=== PATIENT | male | born 1955 | race Caucasian/White ===

== ENCOUNTER → 2023-11-10 09:27 | Outpatient (REF) | payer MEDICARE, SELFPAY | LOC: HWRAD 09:27 | PROVIDERS: ATTENDING PHYSICIAN Specialist; FAMILY PHYSICIAN Family Medicine | DX: N40.1 Benign prostatic hyperplasia with lower urinary tract symptoms (principal) | CPT/HCPCS: 76770 ==

== ENCOUNTER 2024-07-23 11:00 | Emergency (ER) | payer MEDICARE, SELFPAY ==
[2024-07-23 11:06] VITALS: BP 136/64; BMI 29.9
[2024-07-23 11:37] LABS: % Basophils 0.8 % (0-2); % Eosinophils 3.5 % (0-6); % Lymphocytes 14.9 % (20.5-51.1); % Monocytes 7.3 % (1.7-9.3); % Neutrophils 73.5 % (42.2-75.2); Absolute Eosinophils 0.1 10^3/uL (0-0.7); Absolute Lymphocytes 0.6 10^3/uL (1.2-3.4); Absolute Monocytes 0.3 10^3/uL (0.1-0.6); Absolute Neutrophils 2.9 10^3/uL (1.4-6.5); Hematocrit 39.2 % (39.0-52.0); Hemoglobin 13.5 g/dL (13.0-18.0); Mean Corp Hgb Conc. 34.4 g/dL (33.0-37.0); Mean Corpuscular Volume 90.1 fL (80.0-94.0); Mean Platelet Volume 8.1 fL (7.4-10.4); Nucleated Red Blood Cells % 0 % (-); Platelet Count 169 10^3/uL (130-400); Red Blood Cell Count 4.35 10^6/uL (4.70-6.10); Red Cell Dist. Width 12.4 % (11.5-14.5)
--- NOTE | 2024-07-23 11:47 | ED.GENMED ---
History of Present Illness
General
Chief Complaint: Musculo-Skeletal Complaint
Source: patient
Time Seen by Provider: 07/23/24 11:02
History of Present Illness
History of Present Illness:
68-year-old male with a history of a glioblastoma and is status post resection at [place]
Seizure on Keppra
Who presents with after standing in his kitchen this morning at 1015 and steadily feeling an overwhelming feeling of an electrical radiating discomfort that started in his legs and moved up into his arms. It lasted about 15 minutes before fully
resolving and the patient feels normal now. Patient says it was not overall pain but just very strange feeling and he felt off balance. He was unaware of any weakness he denies any slurred speech or confusion, headache, blurry vision facial droop.
Patient says he completed chemo and radiation last week and his due to have a repeated MRI next week
He does not feel weak
no seizure acitvity noticed
here and says she appreciates his LUE waekness that is new today
Past History
Past History
ED Past Medical History: HTN
ED Past Surgical History: None
Social History
Tobacco: Non-smoker
Alcohol: None
Drug: None
Personal:
Living: with family
Review of Systems
Review of Systems
Allergies reviewed?: Yes
All Other Systems: Not applicable
Phy Exam
Physical Exam
Physical Exam:
GENERAL: Alert , in no apparent distress
HEAD: NCAT
EYE: pupils equal and reactive, no nystagmus, minimal photophobia
NECK: Supple,full rom, nontender
ENT: o/p clr, mmm.
CARDIAC: Regular rate and rhythm . no edema
LUNGS: Clear breath sounds bilaterally, no acute respiratory distress, no wheezes/rales/rhonchi
ABDOMEN: Soft, without focal tenderness, no r/g, no cvat
NEUROLOGICAL: Alert and orientedx 4, cn intact, no facial asymmetry, 5/5 RUE AND B/L LE STRENGTH, 4+/5 LUEstrength , sensation intact, romberg neg, ambulates without assistance,+ pronator drift; past pointing on L finger
SKIN: Warm and dry, skin intact.
MUSCULOSKELETAL: No edema, well perfused.
PSYCH: Normal and appropriate interaction.
Course
Orders/Labs/Results
Orders:
Orders
07/23/24 11:19
CT Head W/o Iv Contrast Urgent
Comment: weak L UE
Reason For Exam: glioblastoma; had electrical feeling today;
07/23/24 11:20
Electrocardiogram (*1) Urgent
Reason for Study: TIA/Stroke
EKG- Treatment ONCE
07/23/24 11:31
Complete Blood Count/With Diff Urgent
Comprehensive Metabolic Panel Urgent
Magnesium Urgent
Phosphorus Urgent
07/23/24 12:10
Lorazepam [Ativan] 1 mg IV NOW STA
07/23/24 12:28
Lorazepam [Ativan] 1 mg IV NOW STA
07/23/24 12:29
Levetiracetam Injectable [Keppra] 1,000 mg IV NOW STA
07/23/24 16:27
Ondansetron Injectable [Zofran] 4 mg .ROUTE .STK-MED ONE
07/23/24 16:30
Ondansetron Injectable [Zofran] 4 mg IV NOW STA
Abnormal Lab Results
07/23/24
11:31
WBC 4.0 L 10^3/uL
(4.8-10.8)
RBC 4.35 L 10^6/uL
(4.70-6.10)
Absolute Lymphs (auto) 0.6 L 10^3/uL
(1.2-3.4)
Lymphocytes % 14.9 L %
(20.5-51.1)
Glucose 138 H mg/dl
(70-99)
Total Protein 6.0 L g/dl
(6.3-8.2)
07/23/24 11:31
07/23/24 11:31
Vital Signs
Initial and Last Documented VS:
Initial Vital Signs
Temp Resp Pulse Ox
36.5 C 16 96
07/23/24 11:05 07/23/24 11:05 07/23/24 11:05
Last Documented Vital Signs
Temp Pulse Resp BP Pulse Ox
36.5 C 64 17 123/85 95
07/23/24 11:05 07/23/24 16:15 07/23/24 16:15 07/23/24 16:00 07/23/24 14:15
MDM/Problems Addressed
Differential Diagnosis Includes:
seiuzre, brain tumor recurrence, stroke,
MDM/Problems Addressed:
68 y/o M
brain tumor resected apr 2024 [place]
chemo/radiation comp.eted
here with feeling of electricity all over his body 15 min
resolved
but now i appreciate LUE weakness, pronator drift, and past pointing with the LUE
he doesn't appreciate his arm is weak
initially no seizure activity but pt reassessed to have visible obvious twitching L abdominal musclees, lip, foot left
c/w seizure
d/w ed attending and neuro
recommended ativan which he received x 2 and keppra load
ct neg
will d/w [facility]
who accepted pt to their service at [facility]
dr. plaza
pt has hd resolution in the seizure activity since the 2nd dose ativan and keppra kload
*Critical Care Note
Total Time (30-74mins, 75-104mins- exclusive of procedures): Not Applicable
ED Attending Note
-
Portions of this chart may have been created with voice recognition software.� Occasional wrong word or��sound alike� substitutions may have occurred due to the inherent limitations of voice recognition software.
Discharge Plan
Departure
Patient Disposition: Acute Care Hospital
Date of Disposition: 07/23/24
Time of Disposition: 14:11
Condition: Fair
Covid-19: Not Applicable
Discharge Problem:
Focal motor seizure
Instructions: Seizures
Prescriptions:
No Action
fenofibrate 160 MG tablet
160 mg PO QPM
aspirin 81 MG tablet,delayed release (DR/EC)
81 mg PO QPM
Eliquis 5 MG tablet
5 mg PO BID Qty: 180 3RF
valsartan 80 MG tablet
80 mg PO QPM
ascorbic acid (vitamin C) [Vitamin C] 500 MG tablet
1,000 mg PO QPM
famotidine 40 mg Tablet
40 mg PO BID
tamsulosin 0.4 mg Capsule
0.4 mg PO HS
levetiracetam 750 mg Tablet
750 mg PO BID
finasteride 5 mg Tablet
5 mg PO DAILY
ezetimibe 10 mg Tablet
10 mg PO DAILY
coenzyme Q10 [CoQ-10] 100 mg Capsule
300 mg PO DAILY
Referrals:
Kamlesh Jimenez DO [Family Provider] -
Hospital Transfer
Other hospital: [facility]
I certify that the patient requires transfer: Yes
Discussed case with accepting physician: lorraine
Reason for transfer: higher level of care and continuity of care PCP
Interventions
Interventions:
*Risk Screen - Suicide Last Done: 07/23/24 11:49
*General Assessment Last Done: 07/23/24 15:34
*Neglect/Abuse Screening Last Done: 07/23/24 11:49
ED- Fall Risk Assessment Last Done: 07/23/24 16:42
*ED COVID-19 Vaccine History Last Done: 07/23/24 16:42
*Nursing Disposition Last Done: 07/23/24 16:42
ED-Musculoskeletal Assessment Last Done: 07/23/24 12:16
Discharge Date and Time
Discharge Date/Time: 07/23/24 16:44
Print Language: JAPANESE
[2024-07-23 12:00] VITALS: BP 129/58
[2024-07-23 12:05] LABS: ALT (SGPT) 21 U/L (0-50); AST (SGOT) 24 U/L (17-59); Alkaline Phosphatase 39 U/L (38-126); Blood Urea Nitrogen 17 mg/dl (9-20); Calcium 9.5 mg/dl (8.4-10.2); Carbon Dioxide 24 mmol/L (22-30); Chloride 105 mmol/L (98-107); Estimated Creatinine Clearance 94 ml/min; Glucose 138 mg/dl (70-99); Magnesium 1.7 mg/dl (1.6-2.3); Phosphorus 3.5 mg/dl (2.5-4.5); Potassium 3.9 mmol/L (3.5-5.1); Sodium 140 mmol/L (135-145); Total Bilirubin 0.6 mg/dl (0.2-1.3); eGFR > 60.00
[2024-07-23] MEDS: ATIVAN 1 MG IV ×2 (12:12→12:31)
[2024-07-23] MEDS: KEPPRA 1000 MG IV (12:44)
[2024-07-23 14:00] VITALS: BP 146/90
[2024-07-23 14:11] VITALS: BP 116/74
[2024-07-23 15:00] VITALS: BP 145/78
[2024-07-23 16:00] VITALS: BP 123/85
[2024-07-23] MEDS: ZOFRAN 4 MG IV (16:30)
== END 2024-07-23 16:44 | disposition short-term general hospital (02) ==
LOC: EMR 11:00
PROVIDERS: Physician Assistant; EMERGENCY PHYSICIAN Emergency Medicine; FAMILY PHYSICIAN Family Medicine
DX: R56.9 Unspecified convulsions (principal); Z92.21 Personal history of antineoplastic chemotherapy; Z92.3 Personal history of irradiation
CPT/HCPCS: 99285; 96374; 96375 ×2; 70450; 80053; 83735; 84100; 85025; 93005

== ENCOUNTER 2024-08-29 09:07 | Emergency (ER) | payer MEDICARE, SELFPAY ==
[2024-08-29 09:15] VITALS: BP 103/60
[2024-08-29 09:17] VITALS: BP 103/60; BMI 28.7
--- NOTE | 2024-08-29 09:36 | ED.GENMED ---
History of Present Illness
General
Chief Complaint: Weakness
Source: patient
Exam Limitations: none
Time Seen by Provider: 08/29/24 09:12
Nursing documentation reviewed up to this point in time: agreed with
History of Present Illness
History of Present Illness:
Patient diagnosed with glioblastoma in March 2024, s/p radiation and chemotherapy, discharged from rehab facility 4 days ago after recent admission at [facility] due to seizure episode, presents to ED secondary to bilateral thigh weakness,
when he was walking out of his house, down approxi six steps, on his way to urologist office for an appointment this morning. Patient's spouse, who was with the patient, was able to assist him slowly to the ground. Patient denies any injuries.
Denies loss of sensation. Denies headache. Denies any other complaints. Patient states that since he has been home, physical therapy at home, has not started. Since yesterday, he felt as though his thighs were quite weak. However, as he lives
on 1 floor house, he was able to ambulate with use of walker, as he was doing prior to discharge from rehab. Per patient and spouse, at the time of initial diagnosis, patient has had extensive work, which did not reveal any metastasis. Patient was
told by his neurosurgeon that if his malignancy returns, most likely will be localized to his brain. He has follow-up MRI brain, arranged as an outpatient.
Past History
Past History
ED Past Medical History: HTN
ED Past Surgical History: None
Social History
Tobacco: Non-smoker
Alcohol: None
Drug: None
Personal:
Living: with family
Review of Systems
Review of Systems
Allergies reviewed?: Yes
All Other Systems: ROS reviewed and negative except as documented in HPI and ROS
Constitutional: Reports no symptoms; Denies fever
EENT: Reports no symptoms
Respiratory: Reports no symptoms
Cardiac: Reports no symptoms
ABD/GI: Reports no symptoms
: Reports no symptoms; Denies incontinence
Musculoskeletal: Reports other (thigh weakness)
Skin: Reports no symptoms
Neurological: Reports weakness; Denies dizzy, headache or numbness
Phy Exam
Physical Exam
Physical Exam:
Physical Exam
General: no apparent distress, not acutely ill. afebrile
Head: nc/at. eomi
Neck: supple. no meningeal signs.
Heart: s1/s2 regular rate and rhythm, no murmur. equal radial pulses.
Lungs: no acute respiratory distress. clear bilaterally
Abdomen: normal bowel sounds. not tender.
Neuro: alert and oriented x 3. no focal sensory/motor deficits. normal speech.
Skin: no rash
Psychiatric: well kept. interactive and cooperative
Extremities: no edema. no calf tenderness.
Course
Orders/Labs/Results
Orders:
Orders
08/29/24 09:24
Physical Therapy Consult [Pt Eval And Treat] Urgent
Activity Level: As Tolerated
08/29/24 09:38
CPK [Creatine Phosphokinase] Urgent
Complete Blood Count/With Diff Urgent
Comprehensive Metabolic Panel Urgent
Magnesium Urgent
TSH Urgent
08/29/24 12:37
Case Management Consult ONCE
Case Management Consult: Discharge Planning
Abnormal Lab Results
08/29/24
09:38
RBC 4.15 L 10^6/uL
(4.70-6.10)
Hct 37.7 L %
(39.0-52.0)
MCH 31.3 H pg
(27.0-31.0)
Absolute Lymphs (auto) 0.7 L 10^3/uL
(1.2-3.4)
Neutrophils % 81.5 H %
(42.2-75.2)
Lymphocytes % 11.8 L %
(20.5-51.1)
Carbon Dioxide 21 L mmol/L
(22-30)
Creatinine 0.6 L mg/dL
(0.7-1.3)
Glucose 147 H mg/dl
(70-99)
Creatine Kinase 22 L U/L
(55-170)
Total Protein 6.2 L g/dl
(6.3-8.2)
08/29/24 09:38
08/29/24 09:38
Vital Signs
Initial and Last Documented VS:
Initial Vital Signs
Pulse Resp Pulse Ox
77 16 93
08/29/24 09:14 08/29/24 09:14 08/29/24 09:14
Last Documented Vital Signs
Pulse Resp BP Pulse Ox
60 13 127/64 96
08/29/24 12:30 08/29/24 12:30 08/29/24 11:00 08/29/24 10:52
MDM/Problems Addressed
MDM/Problems Addressed:
Patient evaluated by physical therapy in ED - recommendations provided to patient and his spouse. Patient otherwise remains neurovascularly intact during observation, along with unremarkable blood work. Patient and spouse comfortable going home at
this time, and will continue already initiated at home PT/OT.
*Critical Care Note
Total Time (30-74mins, 75-104mins- exclusive of procedures): Not Applicable
ED Attending Note
-
Portions of this chart may have been created with voice recognition software.� Occasional wrong word or��sound alike� substitutions may have occurred due to the inherent limitations of voice recognition software.
Discharge Plan
Departure
Patient Disposition: Home (Routine Discharge)
Date of Disposition: 08/29/24
Time of Disposition: 12:43
Patient with high blood pressure during this ER visit?: Yes
Discharge Problem:
Weakness
Instructions: Generalized Weakness (DC)
Prescriptions:
No Action
fenofibrate 160 MG tablet
160 mg PO QPM
aspirin 81 MG tablet,delayed release (DR/EC)
81 mg PO QPM
Eliquis 5 MG tablet
5 mg PO BID Qty: 180 3RF
valsartan 80 MG tablet
80 mg PO QPM
ascorbic acid (vitamin C) [Vitamin C] 500 MG tablet
1,000 mg PO QPM
famotidine 40 mg Tablet
40 mg PO BID
tamsulosin 0.4 mg Capsule
0.4 mg PO HS
levetiracetam 750 mg Tablet
750 mg PO BID
finasteride 5 mg Tablet
5 mg PO DAILY
ezetimibe 10 mg Tablet
10 mg PO DAILY
coenzyme Q10 [CoQ-10] 100 mg Capsule
300 mg PO DAILY
Referrals:
Kamlesh Jimenez DO [Family Provider] -
Activity Restrictions/Additional Instructions:
As discussed, please follow-up with your neurosurgeon/oncology service for continual evaluation and treatment. You will require continual evaluation and treatment at home, i.e. physical therapy/Occupational Therapy. Please consider returning to ED
with significantly worsening symptoms.
Interventions
Interventions:
*Risk Screen - Suicide Last Done: 08/29/24 09:16
*General Assessment Last Done: 08/29/24 09:16
*Neglect/Abuse Screening Last Done: 08/29/24 09:16
ED- Fall Risk Assessment Last Done: 08/29/24 09:18
*ED COVID-19 Vaccine History Last Done: 08/29/24 09:18
*Nursing Disposition Last Done: 08/29/24 12:56
ED- Neurological Assessment Last Done: 08/29/24 09:18
ED- Pulmonary Assessment Last Done: 08/29/24 10:15
Discharge Date and Time
Discharge Date/Time: 08/29/24 12:56
Print Language: INDONESIAN
[2024-08-29 09:48] LABS: % Basophils 0.3 % (0-2); % Eosinophils 0.8 % (0-6); % Immature Granulocytes 0.3 % (0-0.5); % Lymphocytes 11.8 % (20.5-51.1); % Monocytes 5.3 % (1.7-9.3); % Neutrophils 81.5 % (42.2-75.2); Absolute Eosinophils 0.1 10^3/uL (0-0.7); Absolute Lymphocytes 0.7 10^3/uL (1.2-3.4); Absolute Monocytes 0.3 10^3/uL (0.1-0.6); Absolute Neutrophils 5.1 10^3/uL (1.4-6.5); Hematocrit 37.7 % (39.0-52.0); Mean Corp Hgb Conc. 34.5 g/dL (33.0-37.0); Mean Corpuscular Hgb 31.3 pg (27.0-31.0); Mean Corpuscular Volume 90.8 fL (80.0-94.0); Mean Platelet Volume 7.9 fL (7.4-10.4); Nucleated Red Blood Cells % 0 % (-); Platelet Count 245 10^3/uL (130-400); Red Blood Cell Count 4.15 10^6/uL (4.70-6.10); Red Cell Dist. Width 12.5 % (11.5-14.5); White Blood Cell Count 6.3 10^3/uL (4.8-10.8)
[2024-08-29 10:00] VITALS: BP 118/65
[2024-08-29 10:11] LABS: ALT (SGPT) 16 U/L (0-50); AST (SGOT) 21 U/L (17-59); Albumin 4.2 g/dl (3.5-5.0); Alkaline Phosphatase 38 U/L (38-126); Blood Urea Nitrogen 17 mg/dl (9-20); Calcium 9.6 mg/dl (8.4-10.2); Carbon Dioxide 21 mmol/L (22-30); Chloride 102 mmol/L (98-107); Creatine Phosphokinase 22 U/L (55-170); Estimated Creatinine Clearance > 125 ml/min; Glucose 147 mg/dl (70-99); Magnesium 1.6 mg/dl (1.6-2.3); Potassium 4.1 mmol/L (3.5-5.1); Sodium 137 mmol/L (135-145); Total Bilirubin 0.5 mg/dl (0.2-1.3); Total Protein 6.2 g/dl (6.3-8.2); eGFR > 60.00
[2024-08-29 10:40] LABS: TSH 0.76 uIU/ml (0.47-4.68)
[2024-08-29 10:52] VITALS: BP 118/64
[2024-08-29 11:00] VITALS: BP 127/64
[2024-08-29 12:00] VITALS: BP 118/64; BP 127/64; PULSE 59; O2SAT 96
--- NOTE | 2024-08-29 12:43 | CM ---
[facility] Patient has a scheduled visit RN visit on 08/30 and a PT visit on 08/31. CM updated patient and ER doctor.
== END 2024-08-29 12:56 | disposition home or self-care (01) ==
LOC: EMR 09:07
PROVIDERS: EMERGENCY PHYSICIAN Emergency Medicine; FAMILY PHYSICIAN Family Medicine
DX: R53.1 Weakness (principal); I10 Essential (primary) hypertension; Z92.21 Personal history of antineoplastic chemotherapy; Z92.3 Personal history of irradiation
CPT/HCPCS: 99283; 80053; 82550; 83735; 84443; 85025

== ENCOUNTER 2024-09-26 20:15 | Inpatient (IN) | payer MEDICARE, SELFPAY ==
[2024-09-26] VITALS (11 sets, daily range): BP systolic 134–173; BP diastolic 65–158; BMI 28.8
[2024-09-26 14:28] LABS: % Basophils 0.6 % (0-2); % Eosinophils 2.4 % (0-6); % Immature Granulocytes 0.6 % (0-0.5); % Lymphocytes 12.9 % (20.5-51.1); % Monocytes 14.4 % (1.7-9.3); % Neutrophils 69.1 % (42.2-75.2); Absolute Eosinophils 0.1 10^3/uL (0-0.7); Absolute Lymphocytes 0.6 10^3/uL (1.2-3.4); Absolute Monocytes 0.7 10^3/uL (0.1-0.6); Absolute Neutrophils 3.2 10^3/uL (1.4-6.5); Hematocrit 36.3 % (39.0-52.0); Hemoglobin 12.5 g/dL (13.0-18.0); Mean Corp Hgb Conc. 34.4 g/dL (33.0-37.0); Mean Corpuscular Hgb 30.7 pg (27.0-31.0); Mean Corpuscular Volume 89.2 fL (80.0-94.0); Mean Platelet Volume 8.3 fL (7.4-10.4); Nucleated Red Blood Cells % 0 % (-); Platelet Count 184 10^3/uL (130-400); Red Blood Cell Count 4.07 10^6/uL (4.70-6.10); Red Cell Dist. Width 12.8 % (11.5-14.5); White Blood Cell Count 4.7 10^3/uL (4.8-10.8)
[2024-09-26 14:40] LABS: ALT (SGPT) 16 U/L (0-50); AST (SGOT) 22 U/L (17-59); Albumin 4.3 g/dl (3.5-5.0); Alkaline Phosphatase 60 U/L (38-126); Blood Urea Nitrogen 19 mg/dl (9-20); Calcium 9.1 mg/dl (8.4-10.2); Carbon Dioxide 27 mmol/L (22-30); Chloride 104 mmol/L (98-107); Glucose 104 mg/dl (70-99); Sodium 140 mmol/L (135-145); Total Bilirubin 0.7 mg/dl (0.2-1.3); Total Protein 6.6 g/dl (6.3-8.2); eGFR > 60.00
[2024-09-26 15:42] LABS: Urine Albumin 3+ (Neg - Trace); Urine Bilirubin Negative (Negative); Urine Character Clear (Clear); Urine Color Yellow; Urine Glucose Negative (Negative); Urine Ketone Negative (Negative); Urine Leukocyte 3+ (Negative); Urine Nitrite Positive (Negative); Urine Occult Blood 4+ (Negative); Urine Urobilinogen 1+ (Neg - 1+)
[2024-09-26 15:54] LABS: Urine Mucus Few; Urine Squamous Cell 0-2 /LPF (Few)
[2024-09-26 15:55] LABS: Urine Bacteria Many (Negative); Urine Red Blood Cell 50-60 /HPF (0-2); Urine White Cell 90-100 /HPF (0-5)
--- NOTE | 2024-09-26 16:37 | ED.GENMED ---
History of Present Illness
General
Chief Complaint: Change in Mental Status
Time Seen by Provider: 09/26/24 13:40
History of Present Illness
History of Present Illness:
68-year-old male with history of glioblastoma status postresection in March 2024 at [place] presents to the emergency department with family for evaluation of worsening cognitive function and increasing agitation at home. He states that for the
past several weeks he has had progressive increase in 'focal seizures' and was recently started on Briviact by his neurologist at [place], first dose was this past . They state that despite starting this medication his mental status seems
to have declined rapidly. Of note he also underwent a TURP procedure 6 days ago for his urologist at [place], catheter had been in place for some time but was removed after the TURP procedure last week. He has been on nitrofurantoin since then.
Family states he is quite somnolent however at nighttime he became increasingly agitated constantly trying to get out of bed, fell yesterday and struck his head on the ground. He has not been on blood thinners since the TURP however did restart
this morning
Past History
Past History
ED Past Medical History: HTN
ED Past Surgical History: None
Social History
Tobacco: Non-smoker
Alcohol: None
Drug: None
Personal:
Living: with family
Review of Systems
Review of Systems
Allergies reviewed?: Yes
All Other Systems: ROS reviewed and negative except as documented in HPI and ROS
Phy Exam
Physical Exam
Physical Exam:
GEN: Well appearing but somnolent, arouses to voice, NAD, WDWN
HEENT: Oral mucosa moist, no scleral icterus, no nasal congestion
Cardiac: Regular rate and rhythm, no murmurs
Lung: No respiratory distress, no tachypnea
MSK: No gross deformity or injuries
Skin: Good color, no pallor or jaundice, no rashes
Neuro: Somnolent, arouses to voice, oriented to place, some confusion to time and events; CN II-XII grossly intact. BUE strength 5/5 in all orr, sensation intact and symmetric. BLE strength 5/5 in all orr, sensation intact and symmetric
Psych: Calm, cooperative
Course
Orders/Labs/Results
Orders:
Orders
09/26/24 13:59
CT Head W/o Iv Contrast Urgent
Comment:
Reason For Exam: fall head injury/AMS
09/26/24 14:09
Complete Blood Count/With Diff Urgent
Comprehensive Metabolic Panel Urgent
Urinalysis Reflex To Culture Urgent
Date Specimen was Collected: 09/26/24
Time Specimen was Collected: 10:53
Urine Microscopic Reflex Cult Urgent
Urine Culture Urgent
AMARJIT Source: U
Specimen Description:
Date Specimen was Collected: 09/26/24
Time Specimen was Collected: 10:53
09/26/24 16:16
Cefepime HCl [Maxipime] 2,000 mg IV NOW STA
Lactated Ringers [Lr] 1,000 ml IV BOLUS
Abnormal Lab Results
09/26/24
14:09
WBC 4.7 L 10^3/uL
(4.8-10.8)
RBC 4.07 L 10^6/uL
(4.70-6.10)
Hgb 12.5 L g/dL
(13.0-18.0)
Hct 36.3 L %
(39.0-52.0)
Absolute Lymphs (auto) 0.6 L 10^3/uL
(1.2-3.4)
Absolute Monos (auto) 0.7 H 10^3/uL
(0.1-0.6)
Immature Gran % 0.6 H %
(0-0.5)
Lymphocytes % 12.9 L %
(20.5-51.1)
Monocytes % 14.4 H %
(1.7-9.3)
Creatinine 0.6 L mg/dL
(0.7-1.3)
Glucose 104 H mg/dl
(70-99)
Ur Occult Blood Reflex 4+ A
(Negative)
Urine Nitrite (Reflex) Positive A
(Negative)
Leukocyte Esterase Rfl 3+ A
(Negative)
Urine RBC 50-60 A /HPF
(0-2)
Urine WBC (Reflex) 90-100 A /HPF
(0-5)
Urine Bacteria (Reflex) Many A
(Negative)
Urine Albumin (Reflex) 3+ A
(Neg - Trace)
09/26/24 14:09
09/26/24 14:09
Vital Signs
Initial and Last Documented VS:
Initial Vital Signs
Temp Pulse Resp BP Pulse Ox
98.4 F 67 18 144/78 97
09/26/24 10:49 09/26/24 10:49 09/26/24 10:49 09/26/24 10:49 09/26/24 10:49
Last Documented Vital Signs
Temp Pulse Resp BP Pulse Ox
98.4 F 70 16 164/77 98
09/26/24 10:49 09/26/24 17:45 09/26/24 17:30 09/26/24 17:00 09/26/24 17:00
MDM/Problems Addressed
MDM/Problems Addressed:
CT of the head is unremarkable. I suspect the mental status changes due to UTI, given recent TURP and prior Milian catheter will treat with broad-spectrum antibiotics. His labs are otherwise reassuring. Certainly cannot discount the possibility of
newly added Briviact contributing to his worsening cognitive decline. At this time I do not see any rationale for transfer to tertiary care facility as outpatient MRI from several weeks ago showed no evidence of recurrent [employer] malignancy and CT of
the head shows no concerns today. Patient was noted to have mild urinary retention however no indication for milian, will place on bladder scan protocol.
*Critical Care Note
Total Time (30-74mins, 75-104mins- exclusive of procedures): Not Applicable
ED Attending Note
-
Portions of this chart may have been created with voice recognition software.� Occasional wrong word or��sound alike� substitutions may have occurred due to the inherent limitations of voice recognition software.
Discharge Plan
Departure
Patient Disposition: Admit
Date of Disposition: 09/26/24
Time of Disposition: 18:59
Admit to: Med/Surg
Presentation/result/management discussed w/ accepting MD/DO: Hospitalist
Discharge Problem:
Urinary tract infection, Acute metabolic encephalopathy
Prescriptions:
No Action
fenofibrate 160 MG tablet
160 mg PO QPM
aspirin 81 MG tablet,delayed release (DR/EC)
81 mg PO QPM
Eliquis 5 MG tablet
5 mg PO BID Qty: 180 3RF
valsartan 80 MG tablet
80 mg PO QPM
ascorbic acid (vitamin C) [Vitamin C] 500 MG tablet
1,000 mg PO QPM
famotidine 40 mg Tablet
40 mg PO BID
tamsulosin 0.4 mg Capsule
0.4 mg PO HS
levetiracetam 750 mg Tablet
750 mg PO BID
finasteride 5 mg Tablet
5 mg PO DAILY
ezetimibe 10 mg Tablet
10 mg PO DAILY
coenzyme Q10 [CoQ-10] 100 mg Capsule
300 mg PO DAILY
Referrals:
Kamlesh Jimenez DO [Family Provider] -
Interventions
Interventions:
*Risk Screen - Suicide Last Done: 09/26/24 10:49
*General Assessment Last Done: 09/26/24 10:49
*Neglect/Abuse Screening Last Done: 09/26/24 10:49
ED- Neurological Assessment Last Done: 09/26/24 15:29
Discharge Date and Time
Print Language: GEORGIAN
[2024-09-26] MEDS: LR 1000 IV (16:42)
[2024-09-26] MEDS: MAXIPIME 2000 MG IV (16:42)
--- NOTE | 2024-09-26 19:39 | HPS.HSE ---
Family Physician
-
Family Physician: Kamlesh Jimenez
Chief Complaint
-
Decreasing mental status
History of Present Illness
This is a 68-year-old male with past medical history of hypertension, hyperlipidemia, DVT/PE, proximal atrial fibrillation, history of glioblastoma status post tumor resection in March, focal seizures, presenting to the emergency department for
evaluation of worsening cognitive function and agitation at home.
Patient reports that for the past several weeks he has has progressive increase in his seizures. Did described as focal seizures. He was started on Briviact by neurologist. Defaults dose was this past . Despite this the patient continued
to have declining mental status. Patient underwent a TURP procedure approximately 6 days ago by urologist at [facility]. He had a catheter which was removed after the procedure. Patient has been on prophylactic nitrofurantoin.
Family reports somnolence in the daytime with nighttime agitation. Recent fall with striking of his head. He has been off maintenance since the TURP which was restarted this am.
In the emergency department he was afebrile, blood pressure was 160/70 with a pulse of 70 satting 98% on room air. A CT of the head shows no acute interval changes. CBC was completely unremarkable. Electrolytes BUN/creatinine were all in the
normal range. LFTs were normal. He had a markedly positive urinalysis.
Medical History
Past Medical History
Past Medical History: Reports Arrhythmia (Proximal atrial fibrillation), Cancer (Glioblastoma status post resection), HTN, Hypercholesterolemia and Other (Venous thromboembolism with DVT and PE)
Past Surgical History: Reports Urological (Status post TURP 1 week ago, prior vasectomy)
Social History
Tobacco: Former Smoker
Alcohol: Former
Drug: None
Personal:
Living: With Family
Employment: Retired
Family History
Family History: Not pertinent
Allergies / Home Medications
Allergies reflects when Allergies were last updated in [facility].
Home Medications with original date entered in [facility]
Allergy/Medication List:
Allergies
Allergy/AdvReac Type Severity Reaction Status Date / Time
iodine Allergy Anaphylaxis Verified 09/26/24 10:49
Sulfa (Sulfonamide Allergy Unknown Verified 09/26/24 10:49
Antibiotics)
Influenza Virus Vaccines AdvReac 'DEALTHY Verified 09/26/24 10:49
SICK'
Home Medications
aspirin 81 mg tablet,delayed release 81 mg PO QPM Blood clot prevention/tx 09/04/20
fenofibrate 160 mg tablet 160 mg PO QPM High cholesterol 09/04/20
apixaban 5 mg tablet (Eliquis) 5 mg PO BID #180 tabs 09/07/20
ascorbic acid (vitamin C) 500 mg tablet (Vitamin C) 1,000 mg PO QPM Supplement 04/23/21
valsartan 80 mg tablet 80 mg PO QPM Blood pressure 04/23/21
coenzyme Q10 100 mg capsule (CoQ-10) 300 mg PO DAILY 07/23/24
ezetimibe 10 mg tablet 10 mg PO DAILY 07/23/24
famotidine 40 mg tablet 40 mg PO BID 07/23/24
finasteride 5 mg tablet 5 mg PO DAILY 07/23/24
levetiracetam 750 mg tablet 750 mg PO BID 07/23/24
tamsulosin 0.4 mg capsule 0.4 mg PO HS 07/23/24
Review of Systems
-
Constitutional: Reports No Symptoms
EENT: Reports No Symptoms
Respiratory: Reports No Symptoms
Cardiac: Reports No Symptoms
Abdomen/GI: Reports No Symptoms
: Reports Incontinence
Musculoskeletal: Reports No Symptoms
Skin: Reports No Symptoms
Neurological: Reports No Symptoms
Endocrine: Reports No Symptoms
Hematologic/Lymphatic: Reports No Symptoms
Psych: Reports No Symptoms
Physical Exam
Vital Signs
Vital Signs
Temp Pulse Resp BP Pulse Ox
98.4 F 70 16 164/77 98
09/26/24 10:49 09/26/24 17:45 09/26/24 17:30 09/26/24 17:00 09/26/24 17:00
Physical Exam
General: Well Developed, No Apparent Distress, Comfortable and Other
HEENT: NormoCephalic, Anicteric, Moist mucous membranes, Atraumatic and PERRLA
Respiratory: Clear
Cardiac: S1/S2 and Regular Rhythm
Breast: Deferred by me
GI: Soft, Non Tender, Non Distended and Normal Bowel Sounds
Rectal: Deferred by Provider
Genito-urinary: No costovertebral tender
Musculoskeletal: No Clubbing, No Cyanosis and No Edema
Skin: Warm
Neuro: Alert, Oriented (oriented to person and time but not to place), Nonfocal/grossly intact, Cranial Nerves Intact and Other (some word finding difficulties with extensive questioning. Moderate confusion)
Hematologic/Lymphatic: No Lymphadenopathy
Psych: Calm
Laboratory Results
-
09/26/24 14:09
09/26/24 14:09
Laboratory Results
Total Bilirubin 0.7 mg/dl (0.2-1.3) 09/26/24 14:09
AST 22 U/L (17-59) 09/26/24 14:09
ALT 16 U/L (0-50) 09/26/24 14:09
Alkaline Phosphatase 60 U/L (38-126) 09/26/24 14:09
Data Reviewed
-
CT Scan: Report Reviewed by me
Lab Data: Labs Reviewed by me
Old Records: Reviewed
Impression/Plan
-
IMPRESSION:
68 y.o with complex past medical history including GBM s/p resection, focal seizures recently on briviact, s/p TURP 1 week ago here with confusion and memory difficulties and found to have mild intermittent retention and positive u/a despite
prophylactic nitrofurantoin. CT head shows no acute abnormality. Eliquis held around surgical procedure but restarted today. Patient on brviact but dose unknown.
PLAN:
1. Confusion - Some underlying dementia and chronic confusion worsening in setting of UTI likely. Complicated UTI given turp. No focal deficits on exam except mild expressive aphasia.
- admit to telemetry
- neurochecks q 6
- urine cultures
- IV ceftriaxone for now
- bladder scan protocol for urinary retention
- restart patients seizure ppx once dose identified
- continue tamslosin and finesteride
2.Anticoagulation - On ac for afib and prior dvt/pe
- cleared to restart, continue eliquis 5 bid
3. pAFIB
- currently sinus
- eliquis
- no rate control, monitor on telemetry
5. HTN
- continue valsartan
DVT PPX - on eliquis
Code status - full code
--- NOTE | 2024-09-26 22:50 | PTCARENOTE ---
Rec'd from ED; transferred from stretcher to bed. Pt w/varying degrees of orientation @ different times. States the date is March 2025. Knows he is in [facility]. Able to give some medical hx and state some of his meds. Has freq difficulty expressing
thoughts; repetitive as he tries to find words. Follows commands. Bed alarm applied to bed due to recent fall and declining cognitive state. Call de use discussed with pt, as well as need to stay in bed unless assisted by staff. Pt voices
understanding.
[2024-09-26] MEDS: ELIQUIS 5 MG PO (23:39)
[2024-09-26] MEDS: FLOMAX 0.4 MG PO (23:40)
[2024-09-26] MEDS: PEPCID 40 MG PO (23:40)
[2024-09-27 00:25] VITALS: BMI 28.8
[2024-09-27 03:36] VITALS: BP 152/75
[2024-09-27] MEDS: STERILE WATER FOR INJECTION 10 ML IV ×2 (05:00→15:36)
[2024-09-27] MEDS: MAXIPIME 2000 MG IV ×2 (05:00→15:35)
[2024-09-27 07:30] VITALS: BP 138/78
[2024-09-27 07:31] LABS: Hematocrit 34.8 % (39.0-52.0); Hemoglobin 12.4 g/dL (13.0-18.0); Mean Corp Hgb Conc. 35.6 g/dL (33.0-37.0); Mean Corpuscular Hgb 30.8 pg (27.0-31.0); Mean Corpuscular Volume 86.4 fL (80.0-94.0); Mean Platelet Volume 8.4 fL (7.4-10.4); Platelet Count 192 10^3/uL (130-400); Red Blood Cell Count 4.03 10^6/uL (4.70-6.10); Red Cell Dist. Width 12.2 % (11.5-14.5); White Blood Cell Count 3.9 10^3/uL (4.8-10.8)
[2024-09-27] MEDS: ZETIA 10 MG PO (07:46)
[2024-09-27] MEDS: ELIQUIS 5 MG PO ×2 (07:46→20:49)
[2024-09-27] MEDS: PROSCAR 5 MG PO (07:46)
[2024-09-27 08:13] LABS: Blood Urea Nitrogen 14 mg/dl (9-20); Calcium 8.8 mg/dl (8.4-10.2); Carbon Dioxide 21 mmol/L (22-30); Chloride 104 mmol/L (98-107); Creatine Phosphokinase < 20 U/L (55-170); Estimated Creatinine Clearance 117 ml/min; Glucose 89 mg/dl (70-99); Magnesium 1.8 mg/dl (1.6-2.3); Potassium 3.5 mmol/L (3.5-5.1); Sodium 139 mmol/L (135-145); eGFR > 60.00
[2024-09-27 08:30] LABS: TSH 0.45 uIU/ml (0.47-4.68)
--- NOTE | 2024-09-27 08:33 | W.PN.HOSP.TC ---
Addendum entered and electronically signed by Steve Dunham MD 09/27/24 08:56:
correction pt is on Cefepime, not Rocephin
Original Note:
Today's Communication/Plan
-
discussed with PARVEZ Escoto and , medication list needs to be corrected
consider Neuro consult depending on progression
Assessment / Plan
Assessment / Plan
68 y.o with complex past medical history including GBM s/p resection, focal seizures recently on briviact, s/p TURP 1 week ago here with confusion and memory difficulties and found to have mild intermittent retention and positive u/a despite
prophylactic nitrofurantoin. CT head shows no acute abnormality. Eliquis held around surgical procedure but restarted today. Patient on brviact but dose unknown.
1. Confusion - Some underlying dementia and chronic confusion worsening in setting of UTI likely. Complicated UTI given turp. No focal deficits on exam except mild expressive aphasia.
- admit to telemetry
- neurochecks q 6
- urine cultures, was on Nitrofurantoin
- IV ceftriaxone for now
- bladder scan protocol for urinary retention
- restart patients seizure ppx once dose identified
- as per , Flomax and Proscar were stopped post TURP
2.Anticoagulation - On ac for afib and prior dvt/pe
- cleared to restart, continue eliquis 5 bid
3. pAFIB
- currently sinus
- eliquis
- no rate control, monitor on telemetry
s/p ablation 04/2021
5. HTN
- continue valsartan
6. Sz disorder
was on Vimpat and Keppra. Keppra has been stopped and is now on Briviact 50 mg bid, and Vimpat 150 mg bid
DVT PPX - on eliquis
many issues
Code status - full code
Anticipated Discharge: > 48 hours
Subjective/Interval History
-
Date of Service: September 27, 2024
Awake, alert, answering basic questions
Objective Data
-
Labs:
Laboratory Results
09/27/24 09/27/24
06:23 06:24
WBC 3.9 L
Hgb 12.4 L
Hct 34.8 L
Plt Count 192
Sodium 139
Potassium 3.5
Chloride 104
Carbon Dioxide 21 L
BUN 14
Creatinine 0.5 L
Glucose 89
Calcium 8.8
Vital Signs:
Vital Signs
Temp Pulse Resp BP Pulse Ox
97.9 F 69 20 138/78 95
09/27/24 07:30 09/27/24 07:30 09/27/24 07:30 09/27/24 07:30 09/27/24 07:30
I&O
09/26/24 09/27/24 09/28/24
06:59 06:59 06:59
Output Total 400 / 400
Balance -400 / -400
Review of Systems
-
History Source: Patient, Family (reviewed with , Eryn) and Coordinated Provider
EENT: Reports No Symptoms Reported
Respiratory: Reports No Symptoms
Cardiac: Reports No Symptoms
Abdomen/GI: Reports No Symptoms
Physical Exam
-
General: Well Developed, Well Nourished and No Apparent Distress
HEENT: Normocephalic, Atraumatic and Moist Mucous Membranes
Respiratory: Clear to Auscultation; Negative Wheezes, Rales or Rhonchi
Cardiac: Regular Rhythm and S1/S2
GI: Nontender and Nondistended
Musculoskeletal: No Clubbing, No Cyanosis and No Edema
Neuro: Awake, Alert and Oriented (mild cognitive impairment)
[2024-09-27 08:49] LABS: Vitamin B12 308 pg/ml (239-931)
[2024-09-27] MEDS: VIMPAT 50 MG PO ×2 (10:10→20:49)
[2024-09-27] MEDS: VIMPAT 100 MG PO ×2 (10:10→20:49)
[2024-09-27] MEDS: BRIVIACT 50 MG PO ×2 (10:10→20:50)
[2024-09-27 11:25] VITALS: BP 128/54
[2024-09-27 15:20] VITALS: BP 142/80
[2024-09-27] MEDS: DIOVAN 80 MG PO (17:07)
[2024-09-27] MEDS: TRICOR 145 MG PO (17:07)
[2024-09-27] MEDS: CRESTOR 40 MG PO (17:07)
[2024-09-27] MEDS: ASPIR LOW (ENTERIC COATED) 81 MG PO (17:07)
[2024-09-27 19:46] VITALS: BP 128/63
[2024-09-27] MEDS: PEPCID 40 MG PO (20:49)
[2024-09-27 23:09] VITALS: BP 129/71
[2024-09-28] MEDS: STERILE WATER FOR INJECTION 10 ML IV ×2 (03:00→15:08)
[2024-09-28] MEDS: MAXIPIME 2000 MG IV ×2 (03:01→15:08)
[2024-09-28 03:23] VITALS: BP 121/62
[2024-09-28 07:35] VITALS: BP 133/70
[2024-09-28] MEDS: VIMPAT 50 MG PO ×2 (08:26→20:34)
[2024-09-28] MEDS: VIMPAT 100 MG PO ×2 (08:26→20:34)
[2024-09-28] MEDS: ELIQUIS 5 MG PO ×2 (08:26→20:34)
[2024-09-28] MEDS: BRIVIACT 50 MG PO ×2 (08:26→20:34)
[2024-09-28] MEDS: ZETIA 10 MG PO (08:26)
[2024-09-28 11:40] VITALS: BP 129/71
[2024-09-28] MEDS: TYLENOL 650 MG PO (15:43)
[2024-09-28 15:45] VITALS: BP 120/66
--- NOTE | 2024-09-28 16:51 | W.PN.HOSP.TC ---
Today's Communication/Plan
-
await Ur C&S
Assessment / Plan
Assessment / Plan
68 y.o with complex past medical history including GBM s/p resection, focal seizures recently on briviact, s/p TURP 1 week ago here with confusion and memory difficulties and found to have mild intermittent retention and positive u/a despite
prophylactic nitrofurantoin. CT head shows no acute abnormality. Eliquis held around surgical procedure but restarted today. Patient on brviact but dose unknown.
1. Confusion - Some underlying dementia and chronic confusion worsening in setting of UTI likely. Complicated UTI given turp (TURP done on 09/14). No focal deficits on exam except mild expressive aphasia.
- admit to telemetry
- neurochecks q 6
- urine cultures, was on Nitrofurantoin
- IV Cefepime for now
- bladder scan protocol for urinary retention
- restart patients seizure ppx once dose identified
- as per , Flomax and Proscar were stopped post TURP
Mentation much better today, but not at baseline
UTI with gm neg bacilli as probable cause of Toxic Metabolic Encephalopathy causing the confusion
await C&S
Call placed and discussed with Dr. Foley [phone]
2.Anticoagulation - On ac for afib and prior dvt/pe
- cleared to restart, continue eliquis 5 bid
3. pAFIB
- currently sinus
- eliquis
- no rate control, monitor on telemetry
s/p ablation 04/2021
5. HTN
- continue valsartan
6. Sz disorder
was on Vimpat and Keppra. Keppra has been stopped and is now on Briviact 50 mg bid, and Vimpat 150 mg bid. Dx with glioblastoma Apr 15, 2024 and started on Keppra. Underwent resection Apr 27, 2024. Dc on Apr 30, doing well initially, started
6 wks of Chemo and XRT at [facility]. 2 weeks later, had a Sz on Jul 23, brought to [facility] and transported to [facility]. Was there for 15 days complicated hospitalization, multiple different agents and finally Sz controlled and then dc to [facility] rehab. On Vimpat
at that time, was working until 2 wks [employer] when developed left sided tilt. Briviact was added 1 wk [employer].
DVT PPX - on eliquis
Code status - full code
reviewed situation extensively with pt'
Anticipated Discharge: 24 - 48 hours
Subjective/Interval History
-
Date of Service: September 28, 2024
Awake, alert, never had dysuria
Objective Data
-
Vital Signs:
Vital Signs
Temp Pulse Resp BP Pulse Ox
98.5 F 62 16 120/66 95
09/28/24 15:45 09/28/24 15:45 09/28/24 15:45 09/28/24 15:45 09/28/24 15:45
I&O
09/27/24 09/28/24 09/29/24
06:59 06:59 06:59
Intake Total 960 / 960 420 / 420
Output Total 400 / 400 850 / 850 300 / 300
Balance -400 / -400 110 / 110 120 / 120
Review of Systems
-
History Source: Patient, Family (reviewed with , Eryn) and Coordinated Provider
EENT: Reports No Symptoms Reported
Respiratory: Reports No Symptoms
Cardiac: Reports No Symptoms
Abdomen/GI: Reports No Symptoms
Genitourinary: Denies Dysuria or Frequency
Neuro: Denies Dizzy, Headache or Weakness
Physical Exam
-
General: Well Developed, Well Nourished and No Apparent Distress
HEENT: Normocephalic, Atraumatic and Moist Mucous Membranes
Respiratory: Clear to Auscultation; Negative Wheezes, Rales or Rhonchi
Cardiac: Regular Rhythm and S1/S2
GI: Nontender and Nondistended
Musculoskeletal: No Clubbing, No Cyanosis and No Edema
Neuro: Awake, Alert and Oriented (mild cognitive impairment)
[2024-09-28] MEDS: DIOVAN 80 MG PO (17:30)
[2024-09-28] MEDS: ASPIR LOW (ENTERIC COATED) 81 MG PO (17:30)
[2024-09-28] MEDS: TRICOR 145 MG PO (17:31)
[2024-09-28] MEDS: CRESTOR 40 MG PO (17:31)
[2024-09-28 19:43] VITALS: BP 136/67
[2024-09-28] MEDS: PEPCID 40 MG PO (21:34)
[2024-09-28 23:38] VITALS: BP 122/63
[2024-09-29 03:50] VITALS: BP 118/65
[2024-09-29] MEDS: STERILE WATER FOR INJECTION 10 ML IV ×2 (04:40→16:40)
[2024-09-29] MEDS: MAXIPIME 2000 MG IV ×2 (04:40→16:40)
[2024-09-29 07:35] VITALS: BP 104/89
[2024-09-29] MEDS: BRIVIACT 50 MG PO ×2 (08:56→21:06)
[2024-09-29] MEDS: VIMPAT 50 MG PO ×2 (08:56→21:06)
[2024-09-29] MEDS: ELIQUIS 5 MG PO ×2 (08:57→21:06)
[2024-09-29] MEDS: VIMPAT 100 MG PO ×2 (08:57→21:06)
[2024-09-29] MEDS: ZETIA 10 MG PO (08:57)
[2024-09-29 11:25] VITALS: BP 127/65
[2024-09-29 11:30] VITALS: BMI 28.8
--- NOTE | 2024-09-29 13:31 | W.PN.HOSP.TC ---
Addendum entered and electronically signed by Steve Dunham MD 09/29/24 15:45:
called back to floor due to requesting further discussion. She would like neurologist evaluation with concern symptoms could be related to AED side effects. Pt remains confused. Will consult neurology
Original Note:
Today's Communication/Plan
-
Inf Disease consult
Assessment / Plan
Assessment / Plan
68 y.o with complex past medical history including GBM s/p resection, focal seizures recently on briviact, s/p TURP 1 week ago here with confusion and memory difficulties and found to have mild intermittent retention and positive u/a despite
prophylactic nitrofurantoin. CT head shows no acute abnormality. Eliquis held around surgical procedure but restarted. Patient on brviact at 50 mg bid.
1. Confusion - Some underlying dementia (possibly radiation associated) and chronic confusion worsening in setting of UTI likely. Complicated UTI given turp (TURP done on 09/14). No focal deficits on exam except mild expressive aphasia, better 09/29.
- admit to telemetry
- neurochecks q 6
- urine cultures, was on Nitrofurantoin
- IV Cefepime for now
- bladder scan protocol for urinary retention
- restarted patients seizure Rx
- as per , Flomax and Proscar were stopped post TURP
Mentation much better today, but not at baseline
UTI with gm neg bacilli as probable cause of Toxic Metabolic Encephalopathy causing the confusion
E. Coli sens to Cefepime
Call placed and discussed with Dr. Foley (Urology) [phone]
Complex situation with seizure aspects and recent brain surgery with XRT because of Glioblastoma
(not currently on chemo, was to start on Oct 17 through [facility])
2.Anticoagulation - On ac for afib and prior dvt/pe
- cleared to restart, continue eliquis 5 bid
3. pAFIB
- currently sinus
- eliquis
- no rate control, monitor on telemetry
s/p ablation 04/2021
5. HTN
- continue valsartan
6. Sz disorder
was on Vimpat and Keppra. Keppra has been stopped and is now on Briviact 50 mg bid, and Vimpat 150 mg bid. Dx with glioblastoma Apr 15, 2024 and started on Keppra. Underwent resection Apr 27, 2024. Dc on Apr 30, doing well initially, started
6 wks of Chemo and XRT at [facility]. 2 weeks later, had a Sz on Jul 23, brought to [facility] and transported to [facility]. Was there for 15 days complicated hospitalization, multiple different agents and finally Sz controlled and then dc to [facility] rehab. On Vimpat
at that time, was working until 2 wks [employer] when developed left sided tilt. Briviact was added 1 wk [employer].
DVT PPX - on eliquis
Code status - full code
reviewed situation extensively with pt' and dgt
complex situation
Anticipated Discharge: 24 - 48 hours
Subjective/Interval History
-
Date of Service: September 29, 2024
more alert, conversant
Objective Data
-
Vital Signs:
Vital Signs
Temp Pulse Resp BP Pulse Ox
97.4 F 65 16 127/65 97
09/29/24 11:25 09/29/24 11:25 09/29/24 11:25 09/29/24 11:25 09/29/24 11:25
I&O
09/28/24 09/29/24 09/30/24
06:59 06:59 06:59
Intake Total 960 / 960 660 / 660
Output Total 850 / 850 300 / 300 450 / 450
Balance 110 / 110 360 / 360 -450 / -450
Review of Systems
-
History Source: Patient, Family (reviewed with , Eryn) and Coordinated Provider
EENT: Reports No Symptoms Reported
Respiratory: Reports No Symptoms
Cardiac: Reports No Symptoms
Abdomen/GI: Reports No Symptoms
Genitourinary: Denies Dysuria or Frequency
Neuro: Denies Dizzy, Headache or Weakness
Physical Exam
-
General: Well Developed, Well Nourished and No Apparent Distress
HEENT: Normocephalic, Atraumatic and Moist Mucous Membranes
Respiratory: Clear to Auscultation; Negative Wheezes, Rales or Rhonchi
Cardiac: Regular Rhythm and S1/S2
GI: Nontender and Nondistended
Musculoskeletal: No Clubbing, No Cyanosis and No Edema
Neuro: Awake, Alert and Oriented (mild cognitive impairment)
--- NOTE | 2024-09-29 15:44 | CON.NEURO ---
Neuro Assessment/Plan
Assessment
Subacute change in mental status in a patient with a prior diagnosis of glioblastoma and recent prostate procedure with anticoagulation held for multiple days prior to the procedure
Differential diagnosis includes focal onset seizures producing lack of recall, medication exposure producing potential irritability, stroke due to recent discontinuance of anticoagulation, and expansion of prior glioblastoma
Plan
Check MRI of brain with and without contrast, with hopeful comparison with prior neuroimaging performed at [facility]
Check EEG greater than 1 hour to determine if the patient is having seizures producing symptomatology
Based on EEG results, consider replacement of brivaracetam (currently dosed with lacosamide) with lamotrigine, or advancement of the dosing of those medications
Would continue the patient's current apixaban and aspirin dosing
Continue rosuvastatin
Goal of normotension
Goal of normoglycemia
Rehabilitation evaluations, particularly speech therapy
Will follow
Consultation
Order
Date of Consultation: 09/29/24
Requesting Provider: Hospitalists
Reason for Consult: Change in mental status
Subjective/Objective
Subjective Data
Date of Service: September 29, 2024
Left-Handed
Patient was diagnosed with glioblastoma in March 2024 and underwent radiation and chemotherapy. The patient then was admitted at [facility] due to an episode of seizure.
Subsequently, patient returned to this hospital's emergency department on September 26, 2024 due to increases in changes in mental status.
6 days prior to his return, he underwent a prostate procedure and initiated nitrofurantoin.
The patient had an alteration immediately prior to his return to this emergency department with change from the use of levetiracetam to the use of brivaracetam. The patient's mental status is described as continuing to have declined despite the
medication revision.
Patient was described as being somnolent, agitated and fell the day before presentation to this hospital, striking his head.
Since hospitalization, the was described as having a significant urinary tract infection and improved mentation. The patient's family however indicate that the patient has been repetitive, agitated, and unable to recall recent events correctly.
Objective Data
Vital Signs
Temp Pulse Resp BP Pulse Ox
36.3 C 65 16 127/65 97
09/29/24 11:25 09/29/24 11:25 09/29/24 11:25 09/29/24 11:25 09/29/24 11:25
Lab Results
09/27/24 06:24
09/27/24 06:23
Sodium 139 mmol/L (135-145) 09/27/24 06:23
Potassium 3.5 mmol/L (3.5-5.1) 09/27/24 06:23
BUN 14 mg/dl (9-20) 09/27/24 06:23
Glucose 89 mg/dl (70-99) 09/27/24 06:23
Calcium 8.8 mg/dl (8.4-10.2) 09/27/24 06:23
Vitamin B12 308 pg/ml (239-931) 09/27/24 06:24
Patient Allergies
iodine Allergy (Verified 09/26/24 10:49)
Anaphylaxis
Sulfa (Sulfonamide Antibiotics) Allergy (Verified 09/26/24 10:49)
Unknown
Influenza Virus Vaccines Adverse Reaction (Verified 09/26/24 10:49)
'DEALTHY SICK'
Physical Exam
-
General: No Apparent Distress and Appears Stated Age
Eyes: OU Absent Papilledema, Round OU, [place] Conjunctivae and No Ptosis
HEENT: Anicteric and Moist Mucous Membranes
Neck: Full Range of Motion
Respiratory: No Dyspnea
Cardiac: No JVD
GI: Non-distended
Skin: Unremarkable
Extremities: No Clubbing, No Cyanosis and No Edema
Psych: Negative Intact Judgement/Insight
Extended Neurological Exam
Mood & Affect: Negative Affect Unremarkable (Irritable)
Attention Span & Concentration: Awake, Alert, Interactive and Mild Difficulty with 2 Step Request
Memory: Able to Recall (Location, year), Reduced (For the current month), Unable to Recall Personal History and Vague
Tremor: Hand Tremor Absent and Head Tremor Absent
Involuntary Movement: None
Speech: Quality Unremarkable and Quantity Unremarkable
Cranial Nerve II: Left Eye: Pupillary Reactivity Unremarkable, Pupillary Size Unremarkable and Visual Sandoval Intact
Cranial Nerve II: Right Eye: Pupillary Reactivity Unremarkable, Pupillary Size Unremarkable and Visual Sandoval Intact
Cranial Nerves III, IV, : Extraocular Movement: Extraocular Movement Full in all Directions
Cranial Nerve VII: Facial Symmetry: Normal Facial Symmetry
Cranial Nerve VIII: Hearing: Unremarkable Hearing to Normal Conversational Volume
Cranial Nerves IX, X: Palate Movement: Palate Elevation Symmetric
Cranial Nerve XI: Shoulder Shrug: Unremarkable
Cranial Nerve XII: Tongue Protusion: Midline
Muscle Strength, Overall: Full Throughout
Muscle Bulk & Tone: Bulk Unremarkable and Tone Unremarkable
Pronator Drift: No Drift in Upper Extremities
Deep Tendon Reflexes: Trace Throughout
Touch Sensation: Unremarkable
Coordination: [id number] Testing Unremarkable
Babinski Sign: Absent Bilaterally
Data Reviewed
-
CT Head: Report Reviewed
MRI Head: Ordered
EEG: Ordered
Labs: Report Reviewed
Reviewed with: Physician, Patient and Family
Old Records: Summarized
Medications
-
Active Medications
Generic Name Dose Route Start Last Admin
Trade Name Freq PRN Reason Stop Dose Admin
Acetaminophen 650 mg 09/26/24 22:28 09/28/24 15:43
Acetaminophen 325 Mg Tablet PO 10/24/24 22:27 650 mg
Q4HPRN PRN Administration
mild pain/GALINDO/temp> 100.4F
Apixaban 5 mg 09/26/24 22:28 09/29/24 08:57
Apixaban (Eliquis) 5 Mg Tablet PO 10/24/24 22:27 5 mg
BID TAMARA Administration
Aspirin 81 mg 09/27/24 18:00 09/28/24 17:30
Aspirin 81 Mg (Enteric Coated) Tablet PO 10/25/24 17:59 81 mg
QPM TAMARA Administration
Bisacodyl 10 mg 09/26/24 22:28
Bisacodyl 10 Mg Rectal Suppository RECTAL 10/24/24 22:27
[id number] PRN
constipation
Brivaracetam 50 mg 09/27/24 09:00 09/29/24 08:56
Brivaracetam 50 Mg Tablet PO 10/25/24 08:59 50 mg
BID TAMARA Administration
Cefepime HCl 2,000 mg 09/27/24 04:00 09/29/24 04:40
Cefepime Hcl 2,000 Mg/12.5 Ml Vial IV 2,000 mg
Q12H TAMARA Administration
Ezetimibe 10 mg 09/27/24 08:00 09/29/24 08:57
Ezetimibe (Zetia) 10 Mg Tablet PO 10/25/24 07:59 10 mg
DAILY TAMARA Administration
Famotidine 40 mg 09/26/24 22:28 09/28/24 21:34
Famotidine 40 Mg Tablet PO 10/24/24 22:27 40 mg
HS TAMARA Administration
Fenofibrate 145 mg 09/27/24 18:00 09/28/24 17:31
Fenofibrate 145 Mg Tablet PO 10/25/24 17:59 145 mg
QPM TAMARA Administration
Lacosamide 100 mg 09/27/24 09:00 09/29/24 08:57
Lacosamide (Vimpat) 100 Mg Tablet PO 10/25/24 08:59 100 mg
BID TAMARA Administration
Lacosamide 50 mg 09/27/24 09:15 09/29/24 08:56
Lacosamide (Vimpat) 50 Mg Tablet PO 10/25/24 09:14 50 mg
BID TAMARA Administration
Lorazepam 0.5 mg 09/26/24 22:00
Lorazepam 0.5 Mg Tablet PO 10/24/24 21:59
HS PRN
agitation
Ondansetron HCl 4 mg 09/26/24 22:28
Ondansetron 4 Mg/2 Ml Vial IV 10/24/24 22:27
Q6HPRN PRN
NAUSEA/VOMITING
Polyethylene Glycol 17 grams 09/26/24 22:28
Polyethylene Glycol Powder 17 Grams Packet PO 10/24/24 22:27
DAILYPRN PRN
constipation
Rosuvastatin Calcium 40 mg 09/27/24 18:00 09/28/24 17:31
Rosuvastatin (Crestor) 40 Mg Tablet PO 10/25/24 17:59 40 mg
QPM TAMARA Administration
Senna/Docusate Sodium 1 tablet 09/26/24 22:28
Docusate W/Senna (Genoveva-Colace) Tablet PO 10/24/24 22:27
BIDPRN PRN
constipation
Sodium Chloride 0 flush 09/26/24 22:00
Sodium Chloride 0.9% (Flush) Syringe IV 10/24/24 21:59
PER PROTOCOL TAMARA
Sterile Water 10 ml 09/27/24 04:00 09/29/24 04:40
Sterile Water For Injection 10 Ml Vial IV 10/25/24 03:59 10 ml
Q12H TAMARA Administration
Valsartan 80 mg 09/27/24 18:00 09/28/24 17:30
Valsartan 80 Mg Tablet PO 10/25/24 17:59 80 mg
QPM TAMARA Administration
Home Medications
�Medication �Instructions �Recorded
aspirin 81 mg tablet,delayed 81 mg PO QPM Blood clot 09/04/20
release prevention/tx
fenofibrate 160 mg tablet 160 mg PO QPM High cholesterol 09/04/20
apixaban 5 mg tablet (Eliquis) 5 mg PO BID #180 tabs 09/07/20
ascorbic acid (vitamin C) 500 mg 1,000 mg PO QPM Supplement 04/23/21
tablet (Vitamin C)
valsartan 80 mg tablet 80 mg PO QPM Blood pressure 04/23/21
coenzyme Q10 100 mg capsule 300 mg PO DAILY Supplement 07/23/24
(CoQ-10)
ezetimibe 10 mg tablet 10 mg PO DAILY High Cholesterol 07/23/24
famotidine 40 mg tablet 40 mg PO BID Gastrointestinal Issue 07/23/24
finasteride 5 mg tablet 5 mg PO DAILY Urinary Issue 07/23/24
levetiracetam 750 mg tablet 750 mg PO BID Neurological 07/23/24
Condition
tamsulosin 0.4 mg capsule 0.4 mg PO HS Urinary Issue 07/23/24
Past History
Past History
ED Past Medical History: Arrthythmia (Atrial fibrillation), Cancer (Glioblastoma), HTN, Hypercholesterolemia and Other (DVT, PE)
ED Past Surgical History: Brain (Craniotomy April 2024), Cardiac (Cardiac ablation 2020) and Urological (Vasectomy)
Social History
Tobacco: Non-smoker
Alcohol: None
Drug: None
Personal:
Living: with family
Family History
Family History: Other (Reviewed and noncontributory)
--- NOTE | 2024-09-29 16:31 | PTCARENOTE ---
Pt AAO x3, forgetful at times. TINOCO well, OOB with assist x1/walker, jace well, no c/o weakness/dizziness. VSS. On room air- pulse ox 98%. Abd large, soft, jace PO. Voids in urinal without difficulty. Resting in bed at present, no c/o. Family
members at bedside.
[2024-09-29] MEDS: FLUSH (NSS) 1 FLUSH IV (16:40)
[2024-09-29 16:42] VITALS: BP 159/76
[2024-09-29] MEDS: TRICOR 145 MG PO (17:19)
[2024-09-29] MEDS: DIOVAN 80 MG PO (17:19)
[2024-09-29] MEDS: ASPIR LOW (ENTERIC COATED) 81 MG PO (17:19)
[2024-09-29] MEDS: CRESTOR 40 MG PO (17:19)
[2024-09-29] MEDS: TYLENOL 650 MG PO (17:20)
[2024-09-29] MEDS: PEPCID 40 MG PO (21:06)
[2024-09-29 23:22] VITALS: BP 117/58
[2024-09-30] MEDS: STERILE WATER FOR INJECTION 10 ML IV ×2 (04:26→17:12)
[2024-09-30] MEDS: MAXIPIME 2000 MG IV (04:26)
[2024-09-30 07:00] VITALS: BP 128/57
--- NOTE | 2024-09-30 08:10 | W.PN.NEURO.1 ---
Today's Communication / Plan
-
Check MRI of brain with and without contrast, with hopeful comparison with prior neuroimaging performed at [facility]
Continue brivaracetam and lacosamide; consideration for replacement of one of the antiseizure medications with lamotrigine for potential improvement in mood
Neuro Assessment/Plan
Assessment
Subacute change in mental status in a patient with a prior diagnosis of glioblastoma and recent prostate procedure with anticoagulation held for multiple days prior to the procedure
Differential diagnosis includes focal onset seizures producing lack of recall, medication exposure producing potential irritability, stroke due to recent discontinuance of anticoagulation, and expansion of prior glioblastoma
Based on the patient's greater than 1 hour EEG not demonstrating seizure activity, I believe that the patient's current symptomatology is secondary to presence of the glioblastoma producing cognitive issues and subsequent mood decline.
Plan
Check MRI of brain with and without contrast, with hopeful comparison with prior neuroimaging performed at [facility]
Continue brivaracetam and lacosamide; consideration for replacement of one of the antiseizure medications with lamotrigine for potential improvement in mood
Would continue the patient's current apixaban and aspirin dosing
Continue rosuvastatin
Goal of normotension
Goal of normoglycemia
Rehabilitation evaluations, particularly speech therapy
Will follow pending results
Subjective/Objective
Subjective Data
Date of Service: September 30, 2024
Objective Data
Vital Signs
Temp Pulse Resp BP Pulse Ox
36.7 C 61 18 128/57 94
09/30/24 07:00 09/30/24 07:00 09/30/24 07:00 09/30/24 07:00 09/30/24 07:00
Lab Results
09/27/24 06:24
09/27/24 06:23
Sodium 139 mmol/L (135-145) 09/27/24 06:23
Potassium 3.5 mmol/L (3.5-5.1) 09/27/24 06:23
BUN 14 mg/dl (9-20) 09/27/24 06:23
Glucose 89 mg/dl (70-99) 09/27/24 06:23
Calcium 8.8 mg/dl (8.4-10.2) 09/27/24 06:23
Vitamin B12 308 pg/ml (239-931) 09/27/24 06:24
Patient Allergies
iodine Allergy (Verified 09/26/24 10:49)
Anaphylaxis
Sulfa (Sulfonamide Antibiotics) Allergy (Verified 09/26/24 10:49)
Unknown
Influenza Virus Vaccines Adverse Reaction (Verified 09/26/24 10:49)
'DEALTHY SICK'
Past History
Past History
ED Past Medical History: Arrthythmia (Atrial fibrillation), Cancer (Glioblastoma), HTN, Hypercholesterolemia and Other (DVT, PE)
ED Past Surgical History: Brain (Craniotomy April 2024), Cardiac (Cardiac ablation 2020) and Urological (Vasectomy)
Social History
Tobacco: Non-smoker
Alcohol: None
Drug: None
Personal:
Living: with family
Family History
Family History: Other (Reviewed and noncontributory)
Medications
-
Medications:
Generic Name Dose Route Start Last Admin
Trade Name Freq PRN Reason Stop Dose Admin
Acetaminophen 650 mg 09/26/24 22:28 09/29/24 17:20
Acetaminophen 325 Mg Tablet PO 10/24/24 22:27 650 mg
Q4HPRN PRN Administration
mild pain/GALINDO/temp> 100.4F
Apixaban 5 mg 09/26/24 22:28 09/29/24 21:06
Apixaban (Eliquis) 5 Mg Tablet PO 10/24/24 22:27 5 mg
BID TAMARA Administration
Aspirin 81 mg 09/27/24 18:00 09/29/24 17:19
Aspirin 81 Mg (Enteric Coated) Tablet PO 10/25/24 17:59 81 mg
QPM TAMARA Administration
Bisacodyl 10 mg 09/26/24 22:28
Bisacodyl 10 Mg Rectal Suppository RECTAL 10/24/24 22:27
[id number] PRN
constipation
Brivaracetam 50 mg 09/27/24 09:00 09/29/24 21:06
Brivaracetam 50 Mg Tablet PO 10/25/24 08:59 50 mg
BID TAMARA Administration
Cefepime HCl 2,000 mg 09/27/24 04:00 09/30/24 04:26
Cefepime Hcl 2,000 Mg/12.5 Ml Vial IV 2,000 mg
Q12H TAMARA Administration
Ezetimibe 10 mg 09/27/24 08:00 09/29/24 08:57
Ezetimibe (Zetia) 10 Mg Tablet PO 10/25/24 07:59 10 mg
DAILY TAMARA Administration
Famotidine 40 mg 09/26/24 22:28 09/29/24 21:06
Famotidine 40 Mg Tablet PO 10/24/24 22:27 40 mg
HS TAMARA Administration
Fenofibrate 145 mg 09/27/24 18:00 09/29/24 17:19
Fenofibrate 145 Mg Tablet PO 10/25/24 17:59 145 mg
QPM TAMARA Administration
Lacosamide 100 mg 09/27/24 09:00 09/29/24 21:06
Lacosamide (Vimpat) 100 Mg Tablet PO 10/25/24 08:59 100 mg
BID TAMARA Administration
Lacosamide 50 mg 09/27/24 09:15 09/29/24 21:06
Lacosamide (Vimpat) 50 Mg Tablet PO 10/25/24 09:14 50 mg
BID TAMARA Administration
Lorazepam 0.5 mg 09/26/24 22:00
Lorazepam 0.5 Mg Tablet PO 10/24/24 21:59
HS PRN
agitation
Ondansetron HCl 4 mg 09/26/24 22:28
Ondansetron 4 Mg/2 Ml Vial IV 10/24/24 22:27
Q6HPRN PRN
NAUSEA/VOMITING
Polyethylene Glycol 17 grams 09/26/24 22:28
Polyethylene Glycol Powder 17 Grams Packet PO 10/24/24 22:27
DAILYPRN PRN
constipation
Rosuvastatin Calcium 40 mg 09/27/24 18:00 09/29/24 17:19
Rosuvastatin (Crestor) 40 Mg Tablet PO 10/25/24 17:59 40 mg
QPM TAMARA Administration
Senna/Docusate Sodium 1 tablet 09/26/24 22:28
Docusate W/Senna (Genoveva-Colace) Tablet PO 10/24/24 22:27
BIDPRN PRN
constipation
Sodium Chloride 0 flush 09/26/24 22:00 09/29/24 16:40
Sodium Chloride 0.9% (Flush) Syringe IV 10/24/24 21:59 1 flush
PER PROTOCOL TAMARA Administration
Sterile Water 10 ml 09/27/24 04:00 09/30/24 04:26
Sterile Water For Injection 10 Ml Vial IV 10/25/24 03:59 10 ml
Q12H TAMARA Administration
Valsartan 80 mg 09/27/24 18:00 09/29/24 17:19
Valsartan 80 Mg Tablet PO 10/25/24 17:59 80 mg
QPM TAMARA Administration
[2024-09-30] MEDS: ZETIA 10 MG PO (09:00)
[2024-09-30] MEDS: VIMPAT 100 MG PO ×2 (09:00→21:10)
[2024-09-30] MEDS: ELIQUIS 5 MG PO ×2 (09:00→21:10)
[2024-09-30] MEDS: VIMPAT 50 MG PO ×2 (09:00→21:10)
[2024-09-30] MEDS: BRIVIACT 50 MG PO ×2 (09:00→21:10)
--- NOTE | 2024-09-30 09:22 | PTOTSP ---
SPEECH THERAPY SWALLOW EVALUATION:
Patient exhibits grossly functional oropharyngeal swallow at this time. No history of dysphagia/pneumonia noted. Patient remains at risk for aspiration/related complications given chronic history of glioblastoma/seizures with acutely exacerbating
factor of impaired mental status 2/2 UTI, TME. Recommend continue Regular texture solids, thin liquids. Medications whole with liquid as best tolerated. General aspiration precautions.
Patient refused to participate in structured speech/language/cognitive communication evaluation. Reported he already 'did this with the doctors and doesn't want to do it again', even despite rationale for further assessment with ST. Patient
exhibited moderate word finding difficulties and expressive aphasia in conversation. Patient stated he feels at his baseline at this time. Given refusal to participate, ST to sign off at this time. Please contact ST if goals/plan of care change.
RECOMMEND:
1) Regular texture diet, thin liquids
2) Medications whole with liquid as best tolerated
3) General aspiration precautions
4) Patient refusing speech/language services; ST to sign off
[2024-09-30] MEDS: VITAMIN B-12 1000 MCG PO (11:32)
--- NOTE | 2024-09-30 13:55 | CON.ID ---
Consultation
-
Date/Time Consultation Requested: 09/29/24 13:52
Date/Time Consultation Performed: 09/30/24 13:57
Requesting Provider: Dr Dunham
Performing Provider: Dr Chiu
Reason for Consultation: Decreasing mental status
Chief Complaint / Past History
Chief Complaint
AMS
History of Present Illness
Mr Barreto is a 69 year old male with history of glioblastoma s/p resection in March, focal seizures who presented here 2/ for decreased mental status and agitation which has progressed over the last several weeks with somnolence in the daytime and
nighttime agitation. There has been an increase in his baseline rate of seizures, he is on Briviact (version of levatiractem). He recently fell and had a head strike.
Of note he underwent a TURP around 09/21 at [facility]; had a milian catheter that was removed after the procedure, he has been on nitrofurantoin.
In the ER he was afebrile, bp overall stable, wbc initially 4.7 now 3.9, hgb 12.4, plt 192, no L shift, na 139, cr 0.5, ck <20, lfts wnl, ua 90-100 wbc/hpf, 2/3 ct head w/o IV contrast: Stable encephalomalacia in the right parietal lobe probably
sequela of previous surgery, MRI brain planned, urine culture 25 K e coli senstivie to nitrofurantoin, resistant to bactrim/tetracycline, sensitive to ciprofloxacin. last qtc was 424. Patient is currently on cefepime.
Past History
Additional Past Medical History:
Arrhythmia (Proximal atrial fibrillation), Cancer (Glioblastoma status post resection), HTN, Hypercholesterolemia and Other (Venous thromboembolism with DVT and PE)
Additional Past Surgical History:
Urological (Status post TURP 1 week ago, prior vasectomy)
Allergy History:
iodine Allergy (Verified 09/26/24 10:49)
Anaphylaxis
Sulfa (Sulfonamide Antibiotics) Allergy (Verified 09/26/24 10:49)
Unknown
Influenza Virus Vaccines Adverse Reaction (Verified 09/26/24 10:49)
'DEALTHY SICK'
Medications Reviewed: Yes
Social History
Tobacco: Former Smoker
Alcohol: Former
Drug: None
Family History
Family History: Not Pertinent
Review of Systems
Review of Systems
unable to obtain due to the condition of the patient
Vital Signs
Temp Pulse Resp BP Pulse Ox
98.0 F 61 18 128/57 94
09/30/24 07:00 09/30/24 07:00 09/30/24 07:00 09/30/24 07:00 09/30/24 09:05
Physical Exam
Physical Exam
Constitutional: No Acute Distress
Cardiovascular: Regular Rate and S1/S2; Negative Murmur or Rub
Pulmonary: Clear and Symmetric; Negative Wheezes, Rales or Rhonchi
Gastrointestinal: Soft, Non Tender, Non Distended and Normal Bowel Sounds
Skin: Warm and Dry; Negative Rash or Jaundice
Lab / Diagnostic Study Results
09/27/24 06:24
09/27/24 06:23
Abs Immat Gran (auto) 0.0 10^3/uL (0-0.05) 09/26/24 14:09
Absolute Neuts (auto) 3.2 10^3/uL (1.4-6.5) 09/26/24 14:09
Absolute Lymphs (auto) 0.6 10^3/uL (1.2-3.4) L 09/26/24 14:09
Absolute Monos (auto) 0.7 10^3/uL (0.1-0.6) H 09/26/24 14:09
Absolute Basos (auto) 0.0 10^3/uL (0-0.2) 09/26/24 14:09
Immature Gran % 0.6 % (0-0.5) H 09/26/24 14:09
Neutrophils % 69.1 % (42.2-75.2) 09/26/24 14:09
Lymphocytes % 12.9 % (20.5-51.1) L 09/26/24 14:09
Monocytes % 14.4 % (1.7-9.3) H 09/26/24 14:09
Eosinophils % 2.4 % (0-6) 09/26/24 14:09
Basophils % 0.6 % (0-2) 09/26/24 14:09
Ur Squamous Epith Cells 0-2 /LPF (Few) 09/26/24 14:09
Microbiology Results
Micro:
09/26/24 14:09 Urine Culture - Final
Urine Escherichia coli
Assessment / Plan
Possible UTI
H/o Glioblastoma
Seizure Disorder
TME - improved
Dementia
Allergy to bactrim - unknown
- nitrofurantoin does not penetrate the prostatic tissues
- given recent prostate surgery and presentation on nitrofurantoin even with very low colony count, reasonable to continue treatment. Options are limited particularly when considering regimens with least potential for neurotoxicty, penetration into
the prostate and allergy profile. While neurology workup is ongoing will transition to ceftriaxone 1 gm IV q24 hours while in house, on dc could transition to fosfomycin 3 gm q 72 hours to complete a 14 day total course. Currently on day 5 of
therapy. Family familiar with goodrx and understand how to use it to reduce cost
- follow up with his urologist at [email or web address].
Care Review
Plan reviewed with: Physician (Dr Dunham)
[2024-09-30 15:00] VITALS: BP 139/57
--- NOTE | 2024-09-30 16:48 | W.PN.HOSP.TC ---
Today's Communication/Plan
-
change code status
EEG now, pt agreeable, reviewed how data will assist in management
MRI
Assessment / Plan
Assessment / Plan
68 y.o with complex past medical history including GBM s/p resection, focal seizures recently on briviact, s/p TURP 1 week ago here with confusion and memory difficulties and found to have mild intermittent retention and positive u/a despite
prophylactic nitrofurantoin. CT head shows no acute abnormality. Eliquis held around surgical procedure but restarted. Patient on brviact at 50 mg bid.
1. Confusion - Some underlying dementia (possibly radiation associated) and chronic confusion worsening in setting of UTI likely. Complicated UTI given turp (TURP done on 09/14). No focal deficits on exam except mild expressive aphasia, better 09/29.
- admit to telemetry
- neurochecks q 6
- urine cultures, was on Nitrofurantoin
- IV Cefepime to change to Ceftriaxone
- bladder scan protocol for urinary retention
- restarted patients seizure Rx
- as per , Flomax and Proscar were stopped post TURP
Mentation much better today, but not at baseline
UTI with gm neg bacilli as probable cause of Toxic Metabolic Encephalopathy causing the confusion
E. Coli sens to Cefepime and Ceftriaxone
Call placed and discussed with Dr. Foley (Urology) [phone]
Complex situation with seizure aspects and recent brain surgery with XRT because of Glioblastoma
(not currently on chemo, was to start on Oct 17 through [facility]). Input of Dr. Roblero noted and appreciated
2.Anticoagulation - On ac for afib and prior dvt/pe
- cleared to restart, continue eliquis 5 bid
3. pAFIB
- currently sinus
- eliquis
- no rate control, monitor on telemetry
s/p ablation 04/2021
5. HTN
- continue valsartan
6. Sz disorder
was on Vimpat and Keppra. Keppra has been stopped and is now on Briviact 50 mg bid, and Vimpat 150 mg bid. Dx with glioblastoma Apr 15, 2024 and started on Keppra. Underwent resection Apr 27, 2024. Dc on Apr 30, doing well initially, started
6 wks of Chemo and XRT at [facility]. 2 weeks later, had a Sz on Jul 23, brought to [facility] and transported to [facility]. Was there for 15 days complicated hospitalization, multiple different agents and finally Sz controlled and then dc to [facility] rehab. On Vimpat
at that time, was working until 2 wks [employer] when developed left sided tilt. Briviact was added 1 wk [employer].
DVT PPX - on eliquis
Code status - discussed with and dgt, she is very clear that pt would never had wanted to be on a ventilator or go through CPR, as such will change code status to DNR
reviewed situation extensively with pt' and dgt in and out of room
complex situation
Anticipated Discharge: > 48 hours
Subjective/Interval History
-
Date of Service: September 30, 2024
Appears calmer today, willing to go for EEG and MRI
Objective Data
-
Vital Signs:
Vital Signs
Temp Pulse Resp BP Pulse Ox
97.9 F 79 18 139/57 94
09/30/24 15:00 09/30/24 15:00 09/30/24 15:00 09/30/24 15:00 09/30/24 15:00
I&O
09/29/24 09/30/24 10/01/24
06:59 06:59 06:59
Intake Total 660 / 660 760 / 760 360 / 360
Output Total 300 / 300 1050 / 1050 400 / 400
Balance 360 / 360 -290 / -290 -40 / -40
Review of Systems
-
History Source: Patient, Family (reviewed with , Eryn) and Coordinated Provider
EENT: Reports No Symptoms Reported
Respiratory: Reports No Symptoms
Cardiac: Reports No Symptoms
Abdomen/GI: Reports No Symptoms
Genitourinary: Denies Dysuria or Frequency
Neuro: Denies Dizzy, Headache or Weakness
Physical Exam
-
General: Well Developed, Well Nourished and No Apparent Distress
HEENT: Normocephalic, Atraumatic and Moist Mucous Membranes
Respiratory: Clear to Auscultation; Negative Wheezes, Rales or Rhonchi
Cardiac: Regular Rhythm and S1/S2
GI: Nontender and Nondistended
Musculoskeletal: No Clubbing, No Cyanosis and No Edema
Neuro: Awake, Alert and Oriented (mild cognitive impairment)
[2024-09-30] MEDS: DIOVAN 80 MG PO (17:12)
[2024-09-30] MEDS: TRICOR 145 MG PO (17:12)
[2024-09-30] MEDS: ROCEPHIN 1000 MG IV (17:12)
[2024-09-30] MEDS: ASPIR LOW (ENTERIC COATED) 81 MG PO (17:12)
[2024-09-30] MEDS: CRESTOR 40 MG PO (17:12)
--- NOTE | 2024-09-30 17:13 | EEG.RPT ---
Electroencephalogram Report
Recording
Date of EE09/30/24
Type of EEG: Routine
Length of EEG recordin minutes
Done with Video Recording: Yes
Patient Status: Inpatient
Recording Conditions: Awake and Drowsy
Hyperventilation Performed: No
Photic Stimulation Performed: Yes
Report
GREATER THAN 1 HOUR REPORT
GREATER THAN 1 HOUR EEG INTERPRETATION:
Moderately abnormal EEG for age in wakefulness through drowsiness due to the above mentioned right temporally predominant generalizing discharge
CLINICAL CORRELATION:
This study was suggestive of right temporal generalizing cortical abnormality best demonstrated in drowsiness. Generalized slowing is suggestive of bihemispheric cortical dysfunction.
Clinical correlation is advised.
METHODS:
A 21 channel digitized electroencephalogram (EEG) was performed at the bedside in the intensive care unit. The 10/20 international system of electrode placement was used with ECG and lateral/vertical eye movements recorded. Video was recorded.
Persyst quantitative EEG analysis was utilized.
ELECTROENCEPHALOGRAPHER IMPRESSION(S):
Quality of study
Fair�good, limited by muscle artifact
Background
There was an fairly to poorly organized anterior to posterior gradient with medium amplitude theta-frequency background
With eye opening the background activity changed to a low voltage mixture of frequencies.
Sleep
Drowsiness present
Photic Stimulation
Failed to activate the record.
ECG
Normal sinus rhythm
Abnormal Findings
In drowsiness was frequent bursts lasting up to 6 seconds of right temporal maximal (T6 maximal) intermittent rhythmic delta activity (GPEDs) of variable amplitudes and not taking place during wakefulness, generalizing.
[2024-09-30] MEDS: PEPCID 40 MG PO (21:10)
[2024-09-30 23:31] VITALS: BP 165/74
[2024-10-01 07:55] VITALS: BP 146/80
[2024-10-01] MEDS: VITAMIN B-12 1000 MCG PO (07:55)
[2024-10-01] MEDS: BRIVIACT 50 MG PO ×2 (07:55→21:31)
[2024-10-01] MEDS: VIMPAT 100 MG PO ×2 (07:56→21:31)
[2024-10-01] MEDS: ELIQUIS 5 MG PO ×2 (07:56→21:31)
[2024-10-01] MEDS: ZETIA 10 MG PO (07:56)
[2024-10-01] MEDS: VIMPAT 50 MG PO ×2 (07:56→21:31)
--- NOTE | 2024-10-01 10:00 | PTOTSP ---
Speech Therapy
Presentation: Patient appeared to be frustrated but willing to participate in session. Patient was oriented to self and location. Patient was not oriented to date or year.
MD ordered cognitive assessment orders.
LABORATORY HELPER assessed patient's cognitive linguistic functioning with the [facility] Cognitive Assessment- Basic. Patient's scores are as follows:
executive function: 0/1 (vision was a barrier; noted glasses - patient stated vision has been an issue for ~ month)
immediate recall: demonstrated difficulty first trial but improved second trial
fluency: 0/2; unable to recall any fruits and stated he is not interested
orientation: 2/6; not orineted to day, month, or year; demonstrated perseverations
calculation: 0/3; perseverations and stated he is not interested in question
abstraction: 2/3; unable to state category of north and south
delayed recall: 0/5; unable to recall any of the words provided earlier in the assessment
visuoperceptual: 0/3; described 2 items out of 10 resulting in 0 pints.
namin/4; described 2 animals and was not interested in the other 2 trials
attention: 0/3; patient refused due to apparent frustration
In sum, patient is demonstrating overt cognitive deficits which may be correlated to his disinterest in the assessment and/or cognitive impairment. Patient demonstrated perseverations, difficulty following complex tasks, recall, fluency,
calculation, visuoperception, naming, and attention.
Given the above, patient would likely benefit from cognitive linguistic therapy provided by LABORATORY HELPER which can be completed in acute care and/ or outpatient; pending d/c plans.
Recommendations:
1) Cognitive linguistic therapy
Plan: LABORATORY HELPER will continue to follow for cognitive linguistic therapy; pending hospitalization.
--- NOTE | 2024-10-01 13:30 | W.PN.HOSP.TC ---
Today's Communication/Plan
-
continue IV Ceftriaxone
MRI and EEG results reviewed
Assessment / Plan
Assessment / Plan
68 y.o with complex past medical history including GBM s/p resection, focal seizures recently on briviact, s/p TURP 1 week ago here with confusion and memory difficulties and found to have mild intermittent retention and positive u/a despite
prophylactic nitrofurantoin. CT head shows no acute abnormality. Eliquis held around surgical procedure but restarted. Patient on brviact at 50 mg bid.
1. Confusion - Some underlying dementia (possibly radiation associated) and chronic confusion worsening in setting of UTI likely. Complicated UTI given turp (TURP done on 09/14). No focal deficits on exam except mild expressive aphasia, better 09/29,
but not back to baseline.
- admit to telemetry
- neurochecks q 6
- urine cultures, was on Nitrofurantoin
- IV Cefepime to change to Ceftriaxone
- bladder scan protocol for urinary retention
- restarted patients seizure Rx
- as per , Flomax and Proscar were stopped post TURP
Mentation much better compared to admission, but not at baseline. Await further input from neurology, continue IV abx while in hospital
09/30 EEG: A 21 channel digitized electroencephalogram (EEG) was performed at the bedside in the intensive care unit. The 10/20 international system of electrode placement was used with ECG and lateral/vertical eye movements recorded. Video was
recorded. Persyst quantitative EEG analysis was utilized.
ELECTROENCEPHALOGRAPHER IMPRESSION(S):
Quality of study
Fair�good, limited by muscle artifact
Background
There was an fairly to poorly organized anterior to posterior gradient with medium amplitude theta-frequency background
With eye opening the background activity changed to a low voltage mixture of frequencies.
Sleep
Drowsiness present
Photic Stimulation
Failed to activate the record.
ECG
Normal sinus rhythm
Abnormal Findings
In drowsiness was frequent bursts lasting up to 6 seconds of right temporal maximal (T6 maximal) intermittent rhythmic delta activity (GPEDs) of variable amplitudes and not taking place during wakefulness, generalizing.
MRI: Status post parieto-occipital craniotomy, centered in the right posterior paramedian parietal region. Focus of encephalomalacia with hemosiderin rim subjacent to the craniotomy. No MR evidence for residual or recurrent neoplasm.
Asymmetric increased FLAIR signal involving the white matter of the right parieto-occipital region, possibly due to radiation therapy.
Asymmetric increased FLAIR signal involving the right posterior thalamus as well as the right medial and lateral cortex of the insula in the region of right external capsule. Etiology for this finding is uncertain. This could be due to radiation
therapy changes that this was included in the radiation therapy field. Differential consideration of encephalitis, without enhancement. Patient with reported history of seizures, and brain parenchymal signal intensity changes can be seen in
association with seizures, and this would also be a differential consideration.
Diffuse atrophy.
UTI with gm neg bacilli as probable cause of Toxic Metabolic Encephalopathy causing the confusion
E. Coli sens to Cefepime and Ceftriaxone. Will continue Ceftriaxone for now, as per ID transition to fosfomycin 3 gms q72hrs at time of dc
Call placed and discussed with Dr. Foley (Urology) [phone] on 09/28, as requested by pt's
Complex situation with seizure aspects and recent brain surgery with XRT because of Glioblastoma
(not currently on chemo, was to start on Oct 17 through [facility]). Input of Dr. Roblero noted and appreciated
2.Anticoagulation - On ac for afib and prior dvt/pe
- cleared to restart, continue eliquis 5 bid
3. pAFIB
- currently sinus
- eliquis
- no rate control, monitor on telemetry
s/p ablation 04/2021
5. HTN
- continue valsartan
6. Sz disorder
was on Vimpat and Keppra. Keppra has been stopped and is now on Briviact 50 mg bid, and Vimpat 150 mg bid. Dx with glioblastoma Apr 15, 2024 and started on Keppra. Underwent resection Apr 27, 2024. Dc on Apr 30, doing well initially, started
6 wks of Chemo and XRT at [facility]. 2 weeks later, had a Sz on Jul 23, [facility] and transported to [facility]. Was there for 15 days complicated hospitalization, multiple different agents and finally Sz controlled and then dc to [facility] rehab. On Vimpat
at that time, was working until 2 wks [employer] when developed left sided tilt. Briviact was added 1 wk [employer].
DVT PPX - on eliquis
Code status - discussed with and dgt, she is very clear that pt would never had wanted to be on a ventilator or go through CPR, as such will change code status to DNR
reviewed situation extensively with pt' and dgt in and out of room
complex situation
Anticipated Discharge: 24 - 48 hours
Subjective/Interval History
-
Date of Service: October 01, 2024
Appears comfortable
Objective Data
-
Vital Signs:
Vital Signs
Temp Pulse Resp BP Pulse Ox
98.5 F 64 16 146/80 93
10/01/24 07:55 10/01/24 07:55 10/01/24 07:55 10/01/24 07:55 10/01/24 07:55
I&O
09/30/24 10/01/24 10/02/24
06:59 06:59 06:59
Intake Total 760 / 760 360 / 360
Output Total 1050 / 1050 400 / 400
Balance -290 / -290 -40 / -40
Review of Systems
-
History Source: Patient, Family (reviewed with , Eryn in and out of room) and Coordinated Provider
EENT: Reports No Symptoms Reported
Respiratory: Reports No Symptoms
Cardiac: Reports No Symptoms
Abdomen/GI: Reports No Symptoms
Genitourinary: Denies Dysuria or Frequency
Neuro: Denies Dizzy, Headache or Weakness
Physical Exam
-
General: Well Developed, Well Nourished and No Apparent Distress
HEENT: Normocephalic, Atraumatic and Moist Mucous Membranes
Respiratory: Clear to Auscultation; Negative Wheezes, Rales or Rhonchi
Cardiac: Regular Rhythm and S1/S2
GI: Nontender and Nondistended
Musculoskeletal: No Clubbing, No Cyanosis and No Edema
Neuro: Awake, Alert and Oriented (mild cognitive impairment)
--- NOTE | 2024-10-01 14:07 | W.PN.NEURO.1 ---
Today's Communication / Plan
-
Lumbar puncture to determine if the patient is experiencing right temporal as well as right insula meningitis/encephalitis or fungal infection
Neuro Assessment/Plan
Assessment
Subacute change in mental status in a patient with a prior diagnosis of glioblastoma and recent prostate procedure with anticoagulation held for multiple days prior to the procedure
Differential diagnosis includes focal onset seizures producing lack of recall, medication exposure producing potential irritability, stroke due to recent discontinuance of anticoagulation, and expansion of prior glioblastoma
Based on the patient's greater than 1 hour EEG there is the possibility of a subacute viral infection or structural abnormality producing symptoms
Plan
Lumbar puncture to determine if the patient is experiencing right temporal as well as right insula meningitis/encephalitis or fungal infection
Continue brivaracetam and lacosamide
Would continue the patient's current apixaban and aspirin dosing
Continue rosuvastatin
Goal of normotension
Goal of normoglycemia
Rehabilitation evaluations, particularly speech therapy
Will follow pending results
Subjective/Objective
Subjective Data
Date of Service: October 01, 2024
Patient reports no symptoms currently
Objective Data
Vital Signs
Temp Pulse Resp BP Pulse Ox
36.9 C 64 16 146/80 93
10/01/24 07:55 10/01/24 07:55 10/01/24 07:55 10/01/24 07:55 10/01/24 07:55
Lab Results
09/27/24 06:24
09/27/24 06:23
Sodium 139 mmol/L (135-145) 09/27/24 06:23
Potassium 3.5 mmol/L (3.5-5.1) 09/27/24 06:23
BUN 14 mg/dl (9-20) 09/27/24 06:23
Glucose 89 mg/dl (70-99) 09/27/24 06:23
Calcium 8.8 mg/dl (8.4-10.2) 09/27/24 06:23
Vitamin B12 308 pg/ml (847-161) 09/27/24 06:24
Patient Allergies
iodine Allergy (Verified 09/26/24 10:49)
Anaphylaxis
Sulfa (Sulfonamide Antibiotics) Allergy (Verified 09/26/24 10:49)
Unknown
Influenza Virus Vaccines Adverse Reaction (Verified 09/26/24 10:49)
'DEALTHY SICK'
Review of Systems
-
Unable to obtain full review of systems at this time due to: Other (Patient declines to provide additional review of systems)
History Source: Patient
All other systems: Reviewed and negative
Physical Exam
-
General: No Apparent Distress and Appears Stated Age
Eyes: Round OU, Stebbins Conjunctivae and No Ptosis
HEENT: Anicteric and Moist Mucous Membranes
Neck: Full Range of Motion
Respiratory: No Dyspnea
Cardiac: No JVD
GI: Non-distended
Skin: Unremarkable
Extremities: No Clubbing, No Cyanosis and No Edema
Psych: Negative Intact Judgement/Insight
Extended Neurological Exam
Mood & Affect: Negative Affect Unremarkable (Irritable)
Attention Span & Concentration: Awake, Alert and Interactive
Memory: Unable to Recall Personal History and Vague
Tremor: Hand Tremor Absent and Head Tremor Absent
Involuntary Movement: None
Speech: Quality Unremarkable and Quantity Unremarkable
Cranial Nerve II: Left Eye: Pupillary Size Unremarkable and Visual Sandoval Grossly Intact
Cranial Nerve II: Right Eye: Pupillary Size Unremarkable and Visual Sandoval Grossly Intact
Cranial Nerves III, IV, : Extraocular Movement: Grossly Intact
Cranial Nerve VII: Facial Symmetry: Normal Facial Symmetry
Cranial Nerve VIII: Hearing: Unremarkable Hearing to Normal Conversational Volume
Muscle Strength, Overall: Spontaneously Moves (All extremities)
Touch Sensation: Unremarkable
Coordination: Reaches for Objects without Difficulty
Data Reviewed
-
MRI Head: Report Reviewed and Image Reviewed
Labs: Report Reviewed
Reviewed with: Physician, Patient and Family
Old Records: Summarized
Past History
Past History
ED Past Medical History: Arrthythmia (Atrial fibrillation), Cancer (Glioblastoma), HTN, Hypercholesterolemia and Other (DVT, PE)
ED Past Surgical History: Brain (Craniotomy April 2024), Cardiac (Cardiac ablation 2020) and Urological (Vasectomy)
Social History
Tobacco: Non-smoker
Alcohol: None
Drug: None
Personal:
Living: with family
Family History
Family History: Other (Reviewed and noncontributory)
[2024-10-01 14:59] LABS: PT 14.5 Sec (11.4-14.6)
--- NOTE | 2024-10-01 15:06 | W.PN.ID1 ---
Date of Service
Date of Service: October 01, 2024
Today's Communication
Continue ceftriaxone.
Will follow LP results.
Assessment / Plan
#Possible UTI
#Allergy to bactrim - unknown
- nitrofurantoin does not penetrate the prostatic tissues
- given recent prostate surgery and presentation on nitrofurantoin even with very low colony count, reasonable to continue treatment. Options are limited particularly when considering regimens with least potential for neurotoxicty, penetration into
the prostate and allergy profile. While neurology workup is ongoing will transition to ceftriaxone 1 gm IV q24 hours while in house, on dc could transition to fosfomycin 3 gm q 72 hours to complete a 14 day total course. Currently on day 5 of
therapy. Family familiar with goodrx and understand how to use it to reduce cost
- follow up with his urologist at [place].
#TME - improved
# H/o Glioblastoma
#Seizure Disorder
#Dementia
-Neurologist concern about possible encephalitis, for LP.
-Will follow results.
Chief Complaint
-: Other (Change in mental status)
Subjective / Review of Systems
He reports he feels well. No GALINDO/neck stiffness.
Vital Signs / Physical Exam
Vital Signs
Vital Signs
Temp Pulse Resp BP Pulse Ox
98.5 F 64 16 146/80 93
10/01/24 07:55 10/01/24 07:55 10/01/24 07:55 10/01/24 07:55 10/01/24 07:55
Physical Exam
Constitutional: No Acute Distress, Comfortable and Non-toxic
Head: Other (No frontal or maxillary sinus tenderness)
Eyes: No Conjunctival Hemorrhage and Erythema
Cardiovascular: Regular Rate and S1/S2
Pulmonary: Clear
Gastrointestinal: Soft, Non Tender, Non Distended, Normal Bowel Sounds and Decreased Bowel Sounds
Genito-Urinary: Negative CVA Tenderness
Extremities: Negative Edema
Neurological: Awake, Alert and Other (Word finding difficulty); Negative Oriented (Not oriented to place, season, year, month, his birthdate) or Meningeal Signs
Psychological: Calm
Objective Data
Lab Data
Lab Results
09/27/24 06:24
09/27/24 06:23
Estimated Creat Clear 117 ml/min 09/27/24 06:23
Total Bilirubin 0.7 mg/dl (0.2-1.3) 09/26/24 14:09
AST 22 U/L (17-59) 09/26/24 14:09
ALT 16 U/L (0-50) 09/26/24 14:09
Alkaline Phosphatase 60 U/L (38-126) 09/26/24 14:09
Most recent labs reviewed.
Micro Results:
09/26/24 14:09 Urine Culture - Final
Urine Escherichia coli
09/30/24 MRI brain: Status post parieto-occipital craniotomy, centered in the right posterior paramedian parietal region. Focus of encephalomalacia with hemosiderin rim subjacent to the craniotomy. No MR evidence for residual or recurrent neoplasm.
Asymmetric increased FLAIR signal involving the white matter of the right parieto-occipital region, possibly due to radiation therapy. Asymmetric increased FLAIR signal involving the right posterior thalamus as well as the right medial and lateral
cortex of the insula in the region of right external capsule. Etiology for this finding is uncertain. This could be due to radiation therapy changes that this was included in the radiation therapy field. Differential consideration of encephalitis,
without enhancement. Patient with reported history of seizures, and brain parenchymal signal intensity changes can be seen in association with seizures, and this would also be a differential consideration. Diffuse atrophy.
[2024-10-01] MEDS: ROCEPHIN 1000 MG IV (15:33)
[2024-10-01] MEDS: STERILE WATER FOR INJECTION 10 ML IV (15:34)
[2024-10-01 15:55] VITALS: BP 145/66
[2024-10-01] MEDS: ASPIR LOW (ENTERIC COATED) 81 MG PO (17:35)
[2024-10-01] MEDS: TRICOR 145 MG PO (17:35)
[2024-10-01] MEDS: DIOVAN 80 MG PO (17:35)
[2024-10-01] MEDS: CRESTOR 40 MG PO (17:35)
[2024-10-01] MEDS: PEPCID 40 MG PO (21:31)
[2024-10-01 23:55] VITALS: BP 159/72
[2024-10-02] MEDS: VIMPAT 100 MG PO ×2 (07:31→21:54)
[2024-10-02] MEDS: BRIVIACT 50 MG PO ×2 (07:31→21:54)
[2024-10-02] MEDS: ZETIA 10 MG PO (07:31)
[2024-10-02] MEDS: ELIQUIS PO ×2 (07:31→07:43)
[2024-10-02] MEDS: VIMPAT 50 MG PO ×2 (07:31→21:54)
[2024-10-02] MEDS: VITAMIN B-12 1000 MCG PO (07:31)
[2024-10-02 07:46] LABS: % Basophils 0.7 % (0-2); % Eosinophils 3.3 % (0-6); % Immature Granulocytes 0.5 % (0-0.5); % Lymphocytes 20.9 % (20.5-51.1); % Monocytes 7.6 % (1.7-9.3); Absolute Eosinophils 0.2 10^3/uL (0-0.7); Absolute Lymphocytes 1.2 10^3/uL (1.2-3.4); Absolute Monocytes 0.4 10^3/uL (0.1-0.6); Absolute Neutrophils 3.8 10^3/uL (1.4-6.5); Hematocrit 33.2 % (39.0-52.0); Hemoglobin 11.6 g/dL (13.0-18.0); Mean Corp Hgb Conc. 34.9 g/dL (33.0-37.0); Mean Corpuscular Hgb 30.9 pg (27.0-31.0); Mean Corpuscular Volume 88.5 fL (80.0-94.0); Mean Platelet Volume 8.3 fL (7.4-10.4); Nucleated Red Blood Cells % 0 % (-); Platelet Count 248 10^3/uL (130-400); Red Blood Cell Count 3.75 10^6/uL (4.70-6.10); Red Cell Dist. Width 12.3 % (11.5-14.5); White Blood Cell Count 5.7 10^3/uL (4.8-10.8)
[2024-10-02 07:55] VITALS: BP 148/72
[2024-10-02 08:17] LABS: Blood Urea Nitrogen 19 mg/dl (9-20); Calcium 9.2 mg/dl (8.4-10.2); Carbon Dioxide 26 mmol/L (22-30); Chloride 108 mmol/L (98-107); Estimated Creatinine Clearance 117 ml/min; Glucose 93 mg/dl (70-99); Potassium 3.8 mmol/L (3.5-5.1); Sodium 141 mmol/L (135-145); eGFR > 60.00
--- NOTE | 2024-10-02 09:14 | W.PN.NEURO.1 ---
Today's Communication / Plan
-
Lumbar puncture to determine if the patient is experiencing right temporal as well as right insula meningitis/encephalitis or fungal infection
Continue brivaracetam and lacosamide
Would continue the patient's current apixaban and aspirin dosing
Neuro Assessment/Plan
Assessment
Subacute change in mental status in a patient with a prior diagnosis of glioblastoma and recent prostate procedure with anticoagulation held for multiple days prior to the procedure
Differential diagnosis includes focal onset seizures producing lack of recall, medication exposure producing potential irritability, stroke due to recent discontinuance of anticoagulation, and expansion of prior glioblastoma
Based on the patient's greater than 1 hour EEG there is the possibility of a subacute viral infection or structural abnormality producing symptoms
Plan
Lumbar puncture to determine if the patient is experiencing right temporal as well as right insula meningitis/encephalitis or fungal infection
Continue brivaracetam and lacosamide
Would continue the patient's current apixaban and aspirin dosing
Continue rosuvastatin
Goal of normotension
Goal of normoglycemia
Rehabilitation evaluations, particularly speech therapy
Will follow pending results
Subjective/Objective
Subjective Data
Date of Service: October 02, 2024
Objective Data
Vital Signs
Temp Pulse Resp BP Pulse Ox
37.0 C 62 18 148/72 93
10/02/24 07:55 10/02/24 07:55 10/02/24 07:55 10/02/24 07:55 10/02/24 07:55
Lab Results
10/02/24 06:25
10/02/24 06:25
PT 14.5 Sec (11.4-14.6) 10/01/24 14:41
INR 1.10 10/01/24 14:41
Sodium 141 mmol/L (135-145) 10/02/24 06:25
Potassium 3.8 mmol/L (3.5-5.1) 10/02/24 06:25
BUN 19 mg/dl (9-20) 10/02/24 06:25
Glucose 93 mg/dl (70-99) 10/02/24 06:25
Calcium 9.2 mg/dl (8.4-10.2) 10/02/24 06:25
Vitamin B12 308 pg/ml (239-931) 09/27/24 06:24
Patient Allergies
iodine Allergy (Verified 09/26/24 10:49)
Anaphylaxis
Sulfa (Sulfonamide Antibiotics) Allergy (Verified 09/26/24 10:49)
Unknown
Influenza Virus Vaccines Adverse Reaction (Verified 09/26/24 10:49)
'DEALTHY SICK'
Past History
Past History
ED Past Medical History: Arrthythmia (Atrial fibrillation), Cancer (Glioblastoma), HTN, Hypercholesterolemia and Other (DVT, PE)
ED Past Surgical History: Brain (Craniotomy April 2024), Cardiac (Cardiac ablation 2020) and Urological (Vasectomy)
Social History
Tobacco: Non-smoker
Alcohol: None
Drug: None
Personal:
Living: with family
Family History
Family History: Other (Reviewed and noncontributory)
Medications
-
Medications:
Generic Name Dose Route Start Last Admin
Trade Name Freq PRN Reason Stop Dose Admin
Acetaminophen 650 mg 09/26/24 22:28 09/29/24 17:20
Acetaminophen 325 Mg Tablet PO 10/24/24 22:27 650 mg
Q4HPRN PRN Administration
mild pain/GALINDO/temp> 100.4F
Apixaban 5 mg 09/26/24 22:28 10/02/24 07:43
Apixaban (Eliquis) 5 Mg Tablet PO 10/24/24 22:27 Not Given
BID TAMARA
Aspirin 81 mg 09/27/24 18:00 10/01/24 17:35
Aspirin 81 Mg (Enteric Coated) Tablet PO 10/25/24 17:59 81 mg
QPM TAMARA Administration
Bisacodyl 10 mg 09/26/24 22:28
Bisacodyl 10 Mg Rectal Suppository RECTAL 10/24/24 22:27
[id number] PRN
constipation
Brivaracetam 50 mg 09/27/24 09:00 10/02/24 07:31
Brivaracetam 50 Mg Tablet PO 10/25/24 08:59 50 mg
BID TAMARA Administration
Ceftriaxone Sodium 1,000 mg 09/30/24 16:00 10/01/24 15:33
Ceftriaxone 1000 Mg / 10 Ml Vial IV 1,000 mg
Q24H TAMARA Administration
Cyanocobalamin 1,000 mcg 09/30/24 12:00 10/02/24 07:31
Cyanocobalamin 1,000 Mcg Tablet PO 10/28/24 11:59 1,000 mcg
DAILY TAMARA Administration
Ezetimibe 10 mg 09/27/24 08:00 10/02/24 07:31
Ezetimibe (Zetia) 10 Mg Tablet PO 10/25/24 07:59 10 mg
DAILY TAMARA Administration
Famotidine 40 mg 09/26/24 22:28 10/01/24 21:31
Famotidine 40 Mg Tablet PO 10/24/24 22:27 40 mg
HS TAMARA Administration
Fenofibrate 145 mg 09/27/24 18:00 10/01/24 17:35
Fenofibrate 145 Mg Tablet PO 10/25/24 17:59 145 mg
QPM TAMARA Administration
Lacosamide 100 mg 09/27/24 09:00 10/02/24 07:31
Lacosamide (Vimpat) 100 Mg Tablet PO 10/25/24 08:59 100 mg
BID TAMARA Administration
Lacosamide 50 mg 09/27/24 09:15 10/02/24 07:31
Lacosamide (Vimpat) 50 Mg Tablet PO 10/25/24 09:14 50 mg
BID TAMARA Administration
Lorazepam 0.5 mg 09/26/24 22:00
Lorazepam 0.5 Mg Tablet PO 10/24/24 21:59
HS PRN
agitation
Ondansetron HCl 4 mg 09/26/24 22:28
Ondansetron 4 Mg/2 Ml Vial IV 10/24/24 22:27
Q6HPRN PRN
NAUSEA/VOMITING
Polyethylene Glycol 17 grams 09/26/24 22:28
Polyethylene Glycol Powder 17 Grams Packet PO 10/24/24 22:27
DAILYPRN PRN
constipation
Rosuvastatin Calcium 40 mg 09/27/24 18:00 10/01/24 17:35
Rosuvastatin (Crestor) 40 Mg Tablet PO 10/25/24 17:59 40 mg
QPM TAMARA Administration
Senna/Docusate Sodium 1 tablet 09/26/24 22:28
Docusate W/Senna (Genoveva-Colace) Tablet PO 10/24/24 22:27
BIDPRN PRN
constipation
Sodium Chloride 0 flush 09/26/24 22:00 09/29/24 16:40
Sodium Chloride 0.9% (Flush) Syringe IV 10/24/24 21:59 1 flush
PER PROTOCOL TAMARA Administration
Sterile Water 10 ml 09/30/24 16:00 10/01/24 15:34
Sterile Water For Injection 10 Ml Vial IV 10/28/24 15:59 10 ml
Q24H TAMARA Administration
Valsartan 80 mg 09/27/24 18:00 10/01/24 17:35
Valsartan 80 Mg Tablet PO 10/25/24 17:59 80 mg
QPM TAMARA Administration
--- NOTE | 2024-10-02 12:13 | W.PN.HOSP.TC ---
Today's Communication/Plan
-
LP now
continue Ceftriaxone
Assessment / Plan
Assessment / Plan
68 y.o with complex past medical history including GBM s/p resection, focal seizures recently on briviact, s/p TURP 1 week ago here with confusion and memory difficulties and found to have mild intermittent retention and positive u/a despite
prophylactic nitrofurantoin. CT head shows no acute abnormality. Eliquis held around surgical procedure but restarted. Patient on brviact at 50 mg bid.
1. Confusion - Some underlying dementia (possibly radiation associated) and chronic confusion worsening in setting of UTI likely. Complicated UTI given turp (TURP done on 09/14). No focal deficits on exam except mild expressive aphasia, better 09/29,
but not back to baseline.
- admit to telemetry
- neurochecks q 6
- urine cultures, was on Nitrofurantoin
- IV Cefepime to change to Ceftriaxone
- bladder scan protocol for urinary retention
- restarted patients seizure Rx
- as per , Flomax and Proscar were stopped post TURP
Mentation much better compared to admission, but not at baseline. Await further input from neurology, continue IV abx while in hospital
MRI and EEG ordered. Concern raised for encephalitis. Pt to go for LP now.
09/30 EEG: A 21 channel digitized electroencephalogram (EEG) was performed at the bedside in the intensive care unit. The 10/20 international system of electrode placement was used with ECG and lateral/vertical eye movements recorded. Video was
recorded. Persyst quantitative EEG analysis was utilized.
ELECTROENCEPHALOGRAPHER IMPRESSION(S):
Quality of study
Fair�good, limited by muscle artifact
Background
There was an fairly to poorly organized anterior to posterior gradient with medium amplitude theta-frequency background
With eye opening the background activity changed to a low voltage mixture of frequencies.
Sleep
Drowsiness present
Photic Stimulation
Failed to activate the record.
ECG
Normal sinus rhythm
Abnormal Findings
In drowsiness was frequent bursts lasting up to 6 seconds of right temporal maximal (T6 maximal) intermittent rhythmic delta activity (GPEDs) of variable amplitudes and not taking place during wakefulness, generalizing.
MRI: Status post parieto-occipital craniotomy, centered in the right posterior paramedian parietal region. Focus of encephalomalacia with hemosiderin rim subjacent to the craniotomy. No MR evidence for residual or recurrent neoplasm.
Asymmetric increased FLAIR signal involving the white matter of the right parieto-occipital region, possibly due to radiation therapy.
Asymmetric increased FLAIR signal involving the right posterior thalamus as well as the right medial and lateral cortex of the insula in the region of right external capsule. Etiology for this finding is uncertain. This could be due to radiation
therapy changes that this was included in the radiation therapy field. Differential consideration of encephalitis, without enhancement. Patient with reported history of seizures, and brain parenchymal signal intensity changes can be seen in
association with seizures, and this would also be a differential consideration.
Diffuse atrophy.
UTI with gm neg bacilli as probable cause of Toxic Metabolic Encephalopathy causing the confusion
E. Coli sens to Cefepime and Ceftriaxone. Will continue Ceftriaxone for now, as per ID transition to fosfomycin 3 gms q72hrs at time of dc
Call placed and discussed with Dr. Foley (Urology) [phone] on 09/28, as requested by pt's . Urine is dark today, will check UA
Complex situation with seizure aspects and recent brain surgery with XRT because of Glioblastoma
(not currently on chemo, was to start on Oct 17 through [facility]). Input of Dr. Roblero noted and appreciated
2.Anticoagulation - On ac for afib and prior dvt/pe
- cleared to restart, continue eliquis 5 bid (confirmed with Anushka BRASHER okay to have LP on Eliquis)
3. pAFIB
- currently sinus
- eliquis
- no rate control, monitor on telemetry
s/p ablation 04/2021
5. HTN
- continue valsartan
6. Sz disorder
was on Vimpat and Keppra. Keppra has been stopped and is now on Briviact 50 mg bid, and Vimpat 150 mg bid. Dx with glioblastoma Apr 15, 2024 and started on Keppra. Underwent resection Apr 27, 2024. Dc on Apr 30, doing well initially, started
6 wks of Chemo and XRT at [facility]. 2 weeks later, had a Sz on Jul 23, brought to [facility] and transported to [facility]. Was there for 15 days complicated hospitalization, multiple different agents and finally Sz controlled and then dc to [facility] rehab. On Vimpat
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 Briviact was added 1 wk EDUCATIONAL ADVISER.
DVT PPX - on eliquis
Code status - discussed with and dgt, she is very clear that pt would never had wanted to be on a ventilator or go through CPR, as such will change code status to DNR
reviewed situation extensively with pt' and dgt in and out of room
complex situation
Anticipated Discharge: > 48 hours
Subjective/Interval History
-
Date of Service: October 02, 2024
More alert
Objective Data
-
Labs:
Laboratory Results
10/02/24
06:25
WBC 5.7
Hgb 11.6 L
Hct 33.2 L
Plt Count 248 D
Sodium 141
Potassium 3.8
Chloride 108 H
Carbon Dioxide 26
BUN 19
Creatinine 0.6 L
Glucose 93
Calcium 9.2
Vital Signs:
Vital Signs
Temp Pulse Resp BP Pulse Ox
98.6 F 62 18 148/72 93
10/02/24 07:55 10/02/24 07:55 10/02/24 07:55 10/02/24 07:55 10/02/24 07:55
I&O
10/01/24 10/02/24 10/03/24
06:59 06:59 06:59
Intake Total 360 / 360 480 / 480
Output Total 400 / 400 180 / 180
Balance -40 / -40 300 / 300
Review of Systems
-
History Source: Patient, Family (reviewed with , Eryn in and out of room) and Coordinated Provider
EENT: Reports No Symptoms Reported
Respiratory: Reports No Symptoms
Cardiac: Reports No Symptoms
Abdomen/GI: Reports No Symptoms
Genitourinary: Denies Dysuria or Frequency
Neuro: Denies Dizzy, Headache or Weakness
Physical Exam
-
General: Well Developed, Well Nourished and No Apparent Distress
HEENT: Normocephalic, Atraumatic and Moist Mucous Membranes
Respiratory: Clear to Auscultation; Negative Wheezes, Rales or Rhonchi
Cardiac: Regular Rhythm and S1/S2
GI: Nontender and Nondistended
Musculoskeletal: No Clubbing, No Cyanosis and No Edema
Neuro: Awake, Alert and Oriented (mild cognitive impairment)
[2024-10-02 12:19] VITALS: BP 146/82; BP_SYST 59
--- NOTE | 2024-10-02 12:24 | W.PN.ID1 ---
Addendum entered and electronically signed by Consuelo Hamlin MD 10/02/24 16:28:
Reviewed prelim LP results
CSF Tube 1- 31 wbc, 218 RBC, 94%Lymphs
CSF Tube2- 16 wbc, 3 RBC, 88% Lymphs, glucose 58, protein 119
Meningoencephalitis panel, etc pending.
start empiric acyclovir 900mg IV q8h.
Original Note:
Date of Service
Date of Service: October 02, 2024
Today's Communication
Continue ceftriaxone.
Assessment / Plan
#Possible UTI
#Allergy to bactrim - unknown
- nitrofurantoin does not penetrate the prostatic tissues
- given recent prostate surgery and presentation on nitrofurantoin even with very low colony count, reasonable to continue treatment. Options are limited particularly when considering regimens with least potential for neurotoxicty, penetration into
the prostate and allergy profile. While neurology workup is ongoing will transition to ceftriaxone 1 gm IV q24 hours while in house, on dc could transition to fosfomycin 3 gm q 72 hours to complete a 14 day total course. Currently on day 5 of
therapy. Family familiar with goodrx and understand how to use it to reduce cost
- follow up with his urologist at [place].
#TME - improved
# H/o Glioblastoma
#Seizure Disorder
#Dementia
-Neurologist concern about possible encephalitis, for LP.
-Will follow results.
Chief Complaint
-: Other (Change in mental status)
Subjective / Review of Systems
Wants to watch Super Bowl today
Vital Signs / Physical Exam
Vital Signs
Vital Signs
Temp Pulse Resp BP Pulse Ox
98.6 F 62 18 148/72 93
10/02/24 07:55 10/02/24 07:55 10/02/24 07:55 10/02/24 07:55 10/02/24 07:55
Physical Exam
Constitutional: No Acute Distress, Comfortable and Non-toxic
Head: Other (No frontal or maxillary sinus tenderness)
Eyes: No Conjunctival Hemorrhage and Erythema
Cardiovascular: Regular Rate and S1/S2
Pulmonary: Clear
Gastrointestinal: Soft, Non Tender, Non Distended, Normal Bowel Sounds and Decreased Bowel Sounds
Genito-Urinary: Negative CVA Tenderness
Extremities: Negative Edema
Neurological: Awake, Alert and Other (Still with word finding difficulty, unable to express himself); Negative Oriented (Improved: today he knows date, month, and Super Bowl Thursday (unlike yesterday). Not oriented to year, name of hospital) or
Meningeal Signs
Psychological: Calm
Objective Data
Lab Data
Lab Results
10/02/24 06:25
10/02/24 06:25
PT 14.5 Sec (11.4-14.6) 10/01/24 14:41
INR 1.10 10/01/24 14:41
Estimated Creat Clear 117 ml/min 10/02/24 06:25
Total Bilirubin 0.7 mg/dl (0.2-1.3) 09/26/24 14:09
AST 22 U/L (17-59) 09/26/24 14:09
ALT 16 U/L (0-50) 09/26/24 14:09
Alkaline Phosphatase 60 U/L (38-126) 09/26/24 14:09
Most recent labs reviewed.
Micro Results:
09/26/24 14:09 Urine Culture - Final
Urine Escherichia coli
09/30/24 MRI brain: Status post parieto-occipital craniotomy, centered in the right posterior paramedian parietal region. Focus of encephalomalacia with hemosiderin rim subjacent to the craniotomy. No MR evidence for residual or recurrent neoplasm.
Asymmetric increased FLAIR signal involving the white matter of the right parieto-occipital region, possibly due to radiation therapy. Asymmetric increased FLAIR signal involving the right posterior thalamus as well as the right medial and lateral
cortex of the insula in the region of right external capsule. Etiology for this finding is uncertain. This could be due to radiation therapy changes that this was included in the radiation therapy field. Differential consideration of encephalitis,
without enhancement. Patient with reported history of seizures, and brain parenchymal signal intensity changes can be seen in association with seizures, and this would also be a differential consideration. Diffuse atrophy.
[2024-10-02 13:02] VITALS: BP 144/74; BP_SYST 55
[2024-10-02 13:34] VITALS: BP 171/83
--- NOTE | 2024-10-02 13:34 | PTCARENOTE ---
Pt received from IR after spinal tap. Band aid intact on the lower back. Pt in bedrest until 1420.
[2024-10-02 14:27] LABS: Spinal Fluid Glucose 58 mg/dl (40-70); Spinal Fluid Protein 119 mg/dl (12-60)
[2024-10-02 14:32] LABS: CSF Color Colorless; CSF Tube # 1; CSF Tube # Clarity Clear
[2024-10-02 14:36] LABS: CSF Lymphocytes 94 %; Red Cell Count/CSF 218 mm^3; Spinal Fluid Macrophages 6 %
[2024-10-02 14:37] LABS: White Blood Cell Count/CSF 31 mm^3 (0-5)
[2024-10-02 14:38] LABS: CSF Clarity Clear; CSF Color Colorless; CSF Tube # 4; Red Cell Count/CSF 3 mm^3; White Cell Count/CSF 16 mm^3 (0-5)
[2024-10-02 14:43] LABS: Spinal Fluid Lymphocytes 88 %
[2024-10-02 14:44] LABS: Spinal Fluid Macrophages 12 %
[2024-10-02 15:10] LABS: Urine Albumin 3+ (Neg - Trace); Urine Bilirubin Negative (Negative); Urine Character Cloudy (Clear); Urine Color Yellow; Urine Glucose Negative (Negative); Urine Ketone Negative (Negative); Urine Leukocyte 3+ (Negative); Urine Nitrite Negative (Negative); Urine Occult Blood 4+ (Negative); Urine Urobilinogen 1+ (Neg - 1+)
[2024-10-02 15:26] LABS: Urine Bacteria Many (Negative); Urine Red Blood Cell 50-60 /HPF (0-2); Urine Squamous Cell 0-2 /LPF (Few)
[2024-10-02 15:55] VITALS: BP 145/69
[2024-10-02] MEDS: ROCEPHIN 1000 MG IV (15:55)
[2024-10-02] MEDS: STERILE WATER FOR INJECTION 10 ML IV (15:56)
[2024-10-02] MEDS: DIOVAN 80 MG PO (17:24)
[2024-10-02] MEDS: ASPIR LOW (ENTERIC COATED) 81 MG PO (17:24)
[2024-10-02] MEDS: CRESTOR 40 MG PO (17:24)
[2024-10-02] MEDS: TRICOR 145 MG PO (17:24)
[2024-10-02] MEDS: ZOVIRAX INJECTION 268 MG IV (17:49)
[2024-10-02] MEDS: PEPCID 40 MG PO (21:54)
[2024-10-02] MEDS: ELIQUIS 5 MG PO (21:54)
[2024-10-02 23:34] VITALS: BP 147/68
[2024-10-03] MEDS: ZOVIRAX INJECTION 268 MG IV ×2 (02:48→09:29)
[2024-10-03 07:03] VITALS: BP 156/83
[2024-10-03] MEDS: ELIQUIS 5 MG PO ×2 (09:29→19:34)
[2024-10-03] MEDS: VITAMIN B-12 1000 MCG PO (09:29)
[2024-10-03] MEDS: VIMPAT 100 MG PO ×2 (09:29→19:34)
[2024-10-03] MEDS: VIMPAT 50 MG PO ×2 (09:29→19:34)
[2024-10-03] MEDS: BRIVIACT 50 MG PO ×2 (09:29→19:34)
[2024-10-03] MEDS: ZETIA 10 MG PO (09:29)
[2024-10-03] MEDS: TYLENOL 650 MG PO (10:10)
[2024-10-03] MEDS: ZOFRAN 4 MG IV (11:05)
--- NOTE | 2024-10-03 11:34 | CM ---
Pt seen bedside w/ spouse. Spouse assisted w/ information for assessment as pt was asleep. Admitted for worsening cognitive function and agitation at home.
Pt lives w/ spouse in a single story home- 6 steps to enter the home. Pt is independent w/ ambulating w/ the use of a walker. Per spouse, there is a bed rail that assists pt w/ getting OOB. There is a shower bench in the bathroom and commode as
well. No other DME identified.
Pt was prev at [facility] rehab, admitted at the end of July thru 08/25/24 per spouse. Pt is current w/ [facility] for PT/OT/ST. Per spouse, services have been beneficial for pt in improving independence in activities. Spouse stated that she assists pt
w/ showering as they do not have a walk in shower but pt is independent in all other ADLs.
Address, point of contact and insurance verified
PCP: Dr. Jimenez
Pharmacy: [facility]
Pt currently on IV abx, poss needs at d/c
Plan: Home w/ DAREK thru [facility]; will watch for IV abx needs at d/c
[2024-10-03 15:03] VITALS: BP 138/90
--- NOTE | 2024-10-03 15:35 | W.PN.ID1 ---
Date of Service
Date of Service: October 03, 2024
Today's Communication
Continue antibiotics. See below�
Assessment / Plan
#Possible UTI
#Allergy to bactrim - unknown
#TME - improved
# H/o Glioblastoma
#Seizure Disorder
#Dementia
Recommendations:
CSF PCR testing negative.
Discontinue further acyclovir.
Narrow ceftriaxone to cefdinir, to complete a 14-day course in total.
Chief Complaint
-: Other (Change in mental status)
Subjective / Review of Systems
Review of Systems: No Fever, No Chills and No Headache
Vital Signs / Physical Exam
Vital Signs
Vital Signs
Temp Pulse Resp BP Pulse Ox
97.5 F 66 18 156/83 96
10/03/24 07:03 10/03/24 07:03 10/03/24 07:03 10/03/24 07:03 10/03/24 08:40
Physical Exam
Constitutional: No Acute Distress, Comfortable and Non-toxic
Head: Other (No frontal or maxillary sinus tenderness)
Eyes: No Conjunctival Hemorrhage
Cardiovascular: Regular Rate and S1/S2
Pulmonary: Clear
Gastrointestinal: Soft, Non Tender, Non Distended, Normal Bowel Sounds and Decreased Bowel Sounds
Genito-Urinary: Negative CVA Tenderness
Extremities: Negative Edema
Neurological: Awake and Alert; Negative Meningeal Signs
Psychological: Calm
Objective Data
Lab Data
Lab Results
10/02/24 06:25
10/02/24 06:25
PT 14.5 Sec (11.4-14.6) 10/01/24 14:41
INR 1.10 10/01/24 14:41
Estimated Creat Clear 117 ml/min 10/02/24 06:25
Total Bilirubin 0.7 mg/dl (0.2-1.3) 09/26/24 14:09
AST 22 U/L (17-59) 09/26/24 14:09
ALT 16 U/L (0-50) 09/26/24 14:09
Alkaline Phosphatase 60 U/L (38-126) 09/26/24 14:09
Most recent labs reviewed.
Micro Results:
10/02/24 12:50 Fungal Culture - Preliminary
Csf Culture in progress.
Positive cultures are reported as soon as detected.
Final report to follow in four to five weeks.
10/02/24 12:50 CSF Culture - Preliminary
Csf No Growth After 18-24 Hours
Gram Stain - Preliminary
10/02/24 13:12 Meningitis/Encephalitis Panel (PCR) - Final
Csf
Escherichia coli K1 Not Detected
Haemophilus influenzae Not Detected
Listeria monocytogenes Not Detected
Neisseria meningitidis Not Detected
Cytomegalovirus (CMV) Not Detected
Streptococcus agalactiae Not Detected
Streptococcus pneumoniae Not Detected
Enterovirus Not Detected
Herpes simplex virus 1 Not Detected
Herpes simplex virus 2 Not Detected
Human herpesvirus 6 Not Detected
Human parechovirus Not Detected
Varicella zoster virus Not Detected
C. neoformans/gattii Not Detected
10/02/24 15:01 Urine Culture - Pending
Urine
10/02/24 12:50 Acid Fast Bacilli Smear - Pending
Csf Acid Fast Bacilli Culture - Pending
09/26/24 14:09 Urine Culture - Final
Urine Escherichia coli
09/30/24 MRI brain: Status post parieto-occipital craniotomy, centered in the right posterior paramedian parietal region. Focus of encephalomalacia with hemosiderin rim subjacent to the craniotomy. No MR evidence for residual or recurrent neoplasm.
Asymmetric increased FLAIR signal involving the white matter of the right parieto-occipital region, possibly due to radiation therapy. Asymmetric increased FLAIR signal involving the right posterior thalamus as well as the right medial and lateral
cortex of the insula in the region of right external capsule. Etiology for this finding is uncertain. This could be due to radiation therapy changes that this was included in the radiation therapy field. Differential consideration of encephalitis,
without enhancement. Patient with reported history of seizures, and brain parenchymal signal intensity changes can be seen in association with seizures, and this would also be a differential consideration. Diffuse atrophy.
Care Review
Plan reviewed with: Physician (Hospitalist)
[2024-10-03] MEDS: CRESTOR 40 MG PO (17:18)
[2024-10-03] MEDS: ASPIR LOW (ENTERIC COATED) 81 MG PO (17:18)
[2024-10-03] MEDS: DIOVAN 80 MG PO (17:18)
[2024-10-03] MEDS: TRICOR 145 MG PO (17:18)
[2024-10-03] MEDS: OMNICEF 300 MG PO (19:34)
[2024-10-03] MEDS: PEPCID 40 MG PO (19:34)
[2024-10-03 23:00] VITALS: BP 108/58
[2024-10-04 07:55] VITALS: BP 127/68
[2024-10-04] MEDS: VIMPAT 100 MG PO ×2 (09:52→22:04)
[2024-10-04] MEDS: OMNICEF 300 MG PO ×2 (09:52→22:03)
[2024-10-04] MEDS: BRIVIACT 50 MG PO ×2 (09:52→22:04)
[2024-10-04] MEDS: ELIQUIS 5 MG PO ×2 (09:52→22:03)
[2024-10-04] MEDS: VIMPAT 50 MG PO ×2 (09:52→22:04)
[2024-10-04] MEDS: ZETIA 10 MG PO (09:52)
[2024-10-04] MEDS: VITAMIN B-12 1000 MCG PO (09:53)
--- NOTE | 2024-10-04 11:26 | W.PN.HOSP.TC ---
Today's Communication/Plan
-
neuro to reeval
continue atb for total of 14day per ID
pt/ot eval
dispo planning
-agreebale to snf
Assessment / Plan
Assessment / Plan
NAD
Scleral Anicteric
MMM
No JVD
CTABL
RRR, S1/S2
Soft, NT, ND, BS+
Warm, Dry
AAO x2 (person/year)
Calm
Toxic metabolic encephalopathy likely secondary to UTI
Started on IV antibiotics ID has transitioned to p.o. cefdinir to complete full 14-day course per
There was concern for meningitis therefore LP was completed highly site count however PCR negative therefore acyclovir discontinued by ID
Was evaluated by neurology
-Concern for seizure however EEG completed. Demonstrated some abnormalities suggestive of right temporal generalized cortical abnormality and generalized slowing suggestive bihemispheric cortical dysfunction
-MRI showing some increased FLAIR signal at the right parieto-occipital region and right posterior thalamus believed to be related to radiation treatments for known history of glioblastoma
Will ask neuro to come by to reeval
Anticoagulation - On ac for afib and prior dvt/pe
- cleared to restart, continue eliquis 5 bid (confirmed with Anushka BRASHER okay to have LP on Eliquis)
pAFIB
- currently sinus
- eliquis
- no rate control, monitor on telemetry
s/p ablation 04/2021
HTN
- continue valsartan
Sz disorder
was on Vimpat and Keppra. Keppra has been stopped and is now on Briviact 50 mg bid, and Vimpat 150 mg bid. Dx with glioblastoma Apr 15, 2024 and started on Keppra. Underwent resection Apr 27, 2024. Dc on Apr 30, doing well initially, started 6
wks of [facility]. 2 weeks later, had a Sz on Jul 23, brought to [facility] and transported to [facility]. Was there for 15 days complicated hospitalization, multiple different agents and finally Sz controlled and then dc to [facility] rehab. On Vimpat
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 Briviact was added 1 wk KNOTTING MACHINE OPERATOR.
DVT PPX - on eliquis
Will have PT/OT reeval as they have not done so
Anticipated Discharge: Within 24 hours
Subjective/Interval History
-
Date of Service: October 04, 2024
Seen and examined. No new complaints. No acute overnight events.
Confused this morning however states when he is just waking up for which she was he is typically confused like this
Objective Data
-
Vital Signs:
Vital Signs
Temp Pulse Resp BP Pulse Ox
97.5 F 62 16 127/68 94
10/04/24 07:55 10/04/24 07:55 10/04/24 07:55 10/04/24 07:55 10/04/24 07:55
I&O
10/03/24 10/04/24 10/05/24
06:59 06:59 06:59
Intake Total 980 / 980 480 / 480
Output Total 1335 / 1335 200 / 200
Balance -355 / -355 280 / 280
[2024-10-04] MEDS: TYLENOL 650 MG PO (12:33)
--- NOTE | 2024-10-04 12:35 | W.PN.ID1 ---
Date of Service
Date of Service: October 04, 2024
Today's Communication
CSF PCR testing negative.
c/w cefdinir, to complete a 14-day course in total; 09/26-10/09
Assessment / Plan
#Possible UTI
#Allergy to bactrim - unknown
#TME - improved
# H/o Glioblastoma
#Seizure Disorder
#Dementia
Recommendations:
CSF PCR testing negative.
c/w cefdinir, to complete a 14-day course in total; 09/26-10/09
Chief Complaint
-: Other (Change in mental status)
Subjective / Review of Systems
afebrile
bp stable
no complaints
Vital Signs / Physical Exam
Vital Signs
Vital Signs
Temp Pulse Resp BP Pulse Ox
97.5 F 62 16 127/68 96
10/04/24 07:55 10/04/24 07:55 10/04/24 07:55 10/04/24 07:55 10/04/24 08:30
Physical Exam
Constitutional: No Acute Distress and Chronically Ill
Cardiovascular: Regular Rate and S1/S2; Negative Murmur or Rub
Pulmonary: Clear and Symmetric; Negative Wheezes or Rales
Gastrointestinal: Soft, Non Tender, Non Distended and Normal Bowel Sounds
Skin: Warm and Dry; Negative Rash or Jaundice
Objective Data
Lab Data
Lab Results
10/02/24 06:25
10/02/24 06:25
PT 14.5 Sec (11.4-14.6) 10/01/24 14:41
INR 1.10 10/01/24 14:41
Estimated Creat Clear 117 ml/min 10/02/24 06:25
Total Bilirubin 0.7 mg/dl (0.2-1.3) 09/26/24 14:09
AST 22 U/L (17-59) 09/26/24 14:09
ALT 16 U/L (0-50) 09/26/24 14:09
Alkaline Phosphatase 60 U/L (38-126) 09/26/24 14:09
Most recent labs reviewed.
Micro Results:
10/02/24 15:01 Urine Culture - Final
Urine NO GROWTH
10/02/24 12:50 CSF Culture - Preliminary
Csf No Growth After 48 Hours
Gram Stain - Preliminary
10/02/24 12:50 Fungal Culture - Preliminary
Csf Culture in progress.
Positive cultures are reported as soon as detected.
Final report to follow in four to five weeks.
10/02/24 13:12 Meningitis/Encephalitis Panel (PCR) - Final
Csf
10/02/24 12:50 Acid Fast Bacilli Smear - Pending
Csf Acid Fast Bacilli Culture - Pending
09/26/24 14:09 Urine Culture - Final
Urine Escherichia coli
09/30/24 MRI brain: Status post parieto-occipital craniotomy, centered in the right posterior paramedian parietal region. Focus of encephalomalacia with hemosiderin rim subjacent to the craniotomy. No MR evidence for residual or recurrent neoplasm.
Asymmetric increased FLAIR signal involving the white matter of the right parieto-occipital region, possibly due to radiation therapy. Asymmetric increased FLAIR signal involving the right posterior thalamus as well as the right medial and lateral
cortex of the insula in the region of right external capsule. Etiology for this finding is uncertain. This could be due to radiation therapy changes that this was included in the radiation therapy field. Differential consideration of encephalitis,
without enhancement. Patient with reported history of seizures, and brain parenchymal signal intensity changes can be seen in association with seizures, and this would also be a differential consideration. Diffuse atrophy.
[2024-10-04 13:45] VITALS: BP 135/57; BP 155/69; PULSE 60; O2SAT 95
--- NOTE | 2024-10-04 14:28 | W.PN.NEURO.1 ---
Today's Communication / Plan
-
progression of dementia, sundowning. attempted to call patient's to discuss starting seroquel 12.5 unable to reach
Neuro Assessment/Plan
Assessment
CSF protein 119, WBC 16, glucose 58, CSF PCR negative
Subacute change in mental status in a patient with a prior diagnosis of glioblastoma and recent prostate procedure with anticoagulation held for multiple days prior to the procedure
MRI without evidence for stroke or other acute findings
no evidence for infectious meningitis/encephalitis
with CSF protein 119, I believe this is a sequela of his prior glioblastoma, and do not believe this represents autoimmune encephalitis given absence of seizures or recent psychosis
Plan
Lumbar puncture to determine if the patient is experiencing right temporal as well as right insula meningitis/encephalitis or fungal infection
Continue brivaracetam 50 BID and lacosamide 150 BID
Would continue the patient's current apixaban and aspirin dosing
Continue rosuvastatin
at most we could add seroquel 12.5 for sundowning; Attempted to call patient's to discuss/unable to reach.
Subjective/Objective
Subjective Data
Date of Service: October 04, [address] Darnell, the patient having intermittent confusion.
The patient is sitting up in chair, sister at bedside. He is clearly having trouble expressing himself and is frustrated by this. Denies hallucinations, delusions, recent seizures
Family report he is sundowning, was particularly bad last night.
LP viral serologies were negative and acyclovir was stopped.
Objective Data
Vital Signs
Temp Pulse Resp BP Pulse Ox
36.4 C 62 16 127/68 96
10/04/24 07:55 10/04/24 07:55 10/04/24 07:55 10/04/24 07:55 10/04/24 08:30
Lab Results
10/02/24 06:25
10/02/24 06:25
PT 14.5 Sec (11.4-14.6) 10/01/24 14:41
INR 1.10 10/01/24 14:41
Sodium 141 mmol/L (135-145) 10/02/24 06:25
Potassium 3.8 mmol/L (3.5-5.1) 10/02/24 06:25
BUN 19 mg/dl (9-20) 10/02/24 06:25
Glucose 93 mg/dl (70-99) 10/02/24 06:25
Calcium 9.2 mg/dl (8.4-10.2) 10/02/24 06:25
Vitamin B12 308 pg/ml (239-931) 09/27/24 06:24
Patient Allergies
Influenza Virus Vaccines Allergy (Verified 10/03/24 15:42)
'DEALTHY SICK'
iodine Allergy (Verified 09/26/24 10:49)
Anaphylaxis
Sulfa (Sulfonamide Antibiotics) Allergy (Verified 09/26/24 10:49)
Unknown
Physical Exam
-
sitting up in chair
Awake and alert, moderately aphasic, disoriented
face symmetric
moving all extrmities
[2024-10-04 14:45] VITALS: BP 117/59; PULSE 64; O2SAT 97
[2024-10-04 15:55] VITALS: BP 136/63
[2024-10-04] MEDS: ASPIR LOW (ENTERIC COATED) 81 MG PO (18:12)
[2024-10-04] MEDS: TRICOR 145 MG PO (18:12)
[2024-10-04] MEDS: DIOVAN 80 MG PO (18:12)
[2024-10-04] MEDS: CRESTOR 40 MG PO (18:12)
[2024-10-04 21:35] LABS: C.neoformans Antigen Negative (Negative)
[2024-10-04] MEDS: PEPCID 40 MG PO (22:03)
[2024-10-04 23:53] VITALS: BP 137/68
[2024-10-05 07:42] VITALS: BP 153/75
--- NOTE | 2024-10-05 08:10 | CM ---
Chart reviewed for d/c planning. Therapy evaluated pt and is determining acute vs skilled rehab.
CM spoke w/ pt and spouse bedside who is agreeable to rehab and prefers [facility] as pt has been there in the past.
[facility] referral placed in [facility] for review.
Plan: Rehab recommended ([facility] preferred)
[2024-10-05] MEDS: ZETIA 10 MG PO (09:02)
[2024-10-05] MEDS: VIMPAT 100 MG PO ×2 (09:02→20:03)
[2024-10-05] MEDS: BRIVIACT 50 MG PO ×2 (09:02→20:03)
[2024-10-05] MEDS: VIMPAT 50 MG PO ×2 (09:02→20:03)
[2024-10-05] MEDS: OMNICEF 300 MG PO ×2 (09:02→20:03)
[2024-10-05] MEDS: ELIQUIS 5 MG PO (09:03)
[2024-10-05] MEDS: VITAMIN B-12 1000 MCG PO (09:03)
[2024-10-05 11:54] LABS: CSF VDRL (T. pallidum) Non Reactive (Non Reactive)
--- NOTE | 2024-10-05 12:02 | W.PN.ID1 ---
Date of Service
Date of Service: October 05, 2024
Today's Communication
c/w cefdinir, to complete a 14-day course in total; 09/26-10/09
follow up with PCP
Assessment / Plan
#Possible UTI
#Allergy to bactrim - unknown
#TME - improved
# H/o Glioblastoma
#Seizure Disorder
#Dementia
Recommendations:
c/w cefdinir, to complete a 14-day course in total; 09/26-10/09
follow up with PCP
Chief Complaint
-: UTI
Subjective / Review of Systems
afebrile
bp stable
was last night
Vital Signs / Physical Exam
Vital Signs
Vital Signs
Temp Pulse Resp BP Pulse Ox
98.3 F 63 18 153/75 95
10/05/24 07:42 10/05/24 07:42 10/05/24 07:42 10/05/24 07:42 10/05/24 11:04
Physical Exam
Constitutional: No Acute Distress and Chronically Ill
Cardiovascular: Regular Rate and S1/S2; Negative Murmur or Rub
Pulmonary: Clear and Symmetric; Negative Wheezes or Rales
Gastrointestinal: Soft, Non Tender, Non Distended and Normal Bowel Sounds
Skin: Warm and Dry; Negative Rash or Jaundice
Objective Data
Lab Data
Lab Results
10/02/24 06:25
10/02/24 06:25
PT 14.5 Sec (11.4-14.6) 10/01/24 14:41
INR 1.10 10/01/24 14:41
Estimated Creat Clear 117 ml/min 10/02/24 06:25
Total Bilirubin 0.7 mg/dl (0.2-1.3) 09/26/24 14:09
AST 22 U/L (17-59) 09/26/24 14:09
ALT 16 U/L (0-50) 09/26/24 14:09
Alkaline Phosphatase 60 U/L (38-126) 09/26/24 14:09
Most recent labs reviewed.
Micro Results:
10/02/24 12:50 CSF Culture - Preliminary
Csf No Growth After 72 Hours
Gram Stain - Preliminary
10/02/24 15:01 Urine Culture - Final
Urine NO GROWTH
10/02/24 12:50 Fungal Culture - Preliminary
Csf Culture in progress.
Positive cultures are reported as soon as detected.
Final report to follow in four to five weeks.
10/02/24 13:12 Meningitis/Encephalitis Panel (PCR) - Final
Csf
10/02/24 12:50 Acid Fast Bacilli Smear - Pending
Csf Acid Fast Bacilli Culture - Pending
09/26/24 14:09 Urine Culture - Final
Urine Escherichia coli
09/30/24 MRI brain: Status post parieto-occipital craniotomy, centered in the right posterior paramedian parietal region. Focus of encephalomalacia with hemosiderin rim subjacent to the craniotomy. No MR evidence for residual or recurrent neoplasm.
Asymmetric increased FLAIR signal involving the white matter of the right parieto-occipital region, possibly due to radiation therapy. Asymmetric increased FLAIR signal involving the right posterior thalamus as well as the right medial and lateral
cortex of the insula in the region of right external capsule. Etiology for this finding is uncertain. This could be due to radiation therapy changes that this was included in the radiation therapy field. Differential consideration of encephalitis,
without enhancement. Patient with reported history of seizures, and brain parenchymal signal intensity changes can be seen in association with seizures, and this would also be a differential consideration. Diffuse atrophy.
--- NOTE | 2024-10-05 13:20 | PTCARENOTE ---
pt with decreased urine output. Bladder scanned pt with [address]. made aware. no new orders at this time.
[2024-10-05 14:19] LABS: Urine Albumin 3+ (Neg - Trace); Urine Bilirubin Negative (Negative); Urine Character Slightly Cloudy (Clear); Urine Color Amber; Urine Glucose Negative (Negative); Urine Ketone Negative (Negative); Urine Leukocyte 2+ (Negative); Urine Nitrite Negative (Negative); Urine Occult Blood 4+ (Negative); Urine Specific Gravity 1.015 (<1.030); Urine Urobilinogen Negative (Neg - 1+)
[2024-10-05 14:29] LABS: Urine Red Blood Cell 26-30 /HPF (0-2); Urine White Cell 26-30 /HPF (0-5)
[2024-10-05 14:30] LABS: Urine Bacteria Few (Negative)
[2024-10-05 14:39] LABS: % Basophils 0.5 % (0-2); % Eosinophils 1.8 % (0-6); % Immature Granulocytes 0.8 % (0-0.5); % Lymphocytes 14.7 % (20.5-51.1); % Monocytes 6.5 % (1.7-9.3); % Neutrophils 75.7 % (42.2-75.2); Absolute Eosinophils 0.1 10^3/uL (0-0.7); Absolute Immature Granulocytes 0.1 10^3/uL (0-0.05); Absolute Lymphocytes 1.1 10^3/uL (1.2-3.4); Absolute Monocytes 0.5 10^3/uL (0.1-0.6); Absolute Neutrophils 5.6 10^3/uL (1.4-6.5); Hematocrit 38.2 % (39.0-52.0); Hemoglobin 13.2 g/dL (13.0-18.0); Mean Corp Hgb Conc. 34.6 g/dL (33.0-37.0); Mean Corpuscular Hgb 30.3 pg (27.0-31.0); Mean Corpuscular Volume 87.8 fL (80.0-94.0); Nucleated Red Blood Cells % 0 % (-); Platelet Count 270 10^3/uL (130-400); Red Blood Cell Count 4.35 10^6/uL (4.70-6.10); Red Cell Dist. Width 12.4 % (11.5-14.5); White Blood Cell Count 7.4 10^3/uL (4.8-10.8)
[2024-10-05 14:55] LABS: ALT (SGPT) 10 U/L (0-50); AST (SGOT) 17 U/L (17-59); Alkaline Phosphatase 57 U/L (38-126); Blood Urea Nitrogen 31 mg/dl (9-20); Calcium 9.9 mg/dl (8.4-10.2); Carbon Dioxide 25 mmol/L (22-30); Chloride 106 mmol/L (98-107); Creatine Phosphokinase 36 U/L (55-170); Direct Bilirubin 0.2 mg/dl (0.0-0.4); Estimated Creatinine Clearance 33 ml/min; Glucose 96 mg/dl (70-99); Potassium 3.9 mmol/L (3.5-5.1); Sodium 141 mmol/L (135-145); Total Bilirubin 0.8 mg/dl (0.2-1.3); eGFR 33.03
[2024-10-05 14:56] LABS: B.E. -0.7 mmol/L; HCO3 23.4 mmol/L (21-28); O2 Saturation % 97.2 % (94-98); PCO2 36 mmHg (35-48); PO2 73 mmHg (83-108); pH 7.42 (7.35-7.45)
[2024-10-05 15:04] VITALS: BP 178/80
--- NOTE | 2024-10-05 15:13 | W.PN.HOSP.TC ---
Today's Communication/Plan
-
Assessment / Plan
Assessment / Plan
NAD
Scleral Anicteric
MMM
No JVD
CTABL
RRR, S1/S2
Soft, NT, ND, BS+
Warm, Dry
AAO x2 (person/year)
Calm
Toxic metabolic encephalopathy likely secondary to UTI
Started on IV antibiotics ID has transitioned to p.o. cefdinir to complete full 14-day course per
There was concern for meningitis therefore LP was completed highly site count however PCR negative therefore acyclovir discontinued by ID
Was evaluated by neurology
-Concern for seizure however EEG completed. Demonstrated some abnormalities suggestive of right temporal generalized cortical abnormality and generalized slowing suggestive bihemispheric cortical dysfunction
-MRI showing some increased FLAIR signal at the right parieto-occipital region and right posterior thalamus believed to be related to radiation treatments for known history of glioblastoma
-- Due to the acute change in mental status from this morning to this afternoon. I placed a stat CT CBC BMP LFTs a urine analysis
----I called Dr. Terrell shields who is his primary neurologist at [facility], waiting for a phone call back and after receiving an okay/consent from his Eryn I faxed over MRI CT brain and EEG results to [phone]
Anticoagulation - On ac for afib and prior dvt/pe
- cleared to restart, continue eliquis 5 bid (confirmed with Anushka BRASHER okay to have LP on Eliquis)
pAFIB
- currently sinus
- eliquis
- no rate control, monitor on telemetry
s/p ablation 04/2021
HTN
- continue valsartan
Sz disorder
was on Vimpat and Keppra. Keppra has been stopped and is now on Briviact 50 mg bid, and Vimpat 150 mg bid. Dx with glioblastoma Apr 15, 2024 and started on Keppra. Underwent resection Apr 27, 2024. Dc on Apr 30, doing well initially, started 6
wks of Chemo and XRT at [facility]. 2 weeks later, had a Sz on Jul 23, brought to [facility] and transported to [facility]. Was there for 15 days complicated hospitalization, multiple different agents and finally Sz controlled and then dc to [facility] rehab. On Vimpat
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 Briviact was added 1 wk RETENTION MANAGER.
DVT PPX - on eliquis
Will have PT/OT reeval as they have not done so
Anticipated Discharge: Today
Subjective/Interval History
-
Date of Service: October 05, 2024
Seen and examined.
When I first evaluated him this morning he was able to tell me the year and where he was along with his name. However notified by nursing that his noted a change in mental status therefore
Objective Data
-
Labs:
Laboratory Results
10/05/24 10/05/24
14:11 14:40
WBC 7.4
Hgb 13.2
Hct 38.2 L
Plt Count 270
HCO3 23.4
Sodium 141
Potassium 3.9
Chloride 106
Carbon Dioxide 25
BUN 31 H
Creatinine 2.1 H
Glucose 96
Calcium 9.9
Total Bilirubin 0.8
AST 17
ALT 10
Alkaline Phosphatase 57
Vital Signs:
Vital Signs
Temp Pulse Resp BP Pulse Ox
98.3 F 63 18 153/75 95
10/05/24 07:42 10/05/24 07:42 10/05/24 07:42 10/05/24 07:42 10/05/24 11:04
I&O
10/04/24 10/05/24 10/06/24
06:59 06:59 06:59
Intake Total 480 / 480
Output Total 200 / 200 800 / 800
Balance 280 / 280 -800 / -800
[2024-10-05 15:55] VITALS: BP 178/80; PULSE 66; O2SAT 95
[2024-10-05 16:00] VITALS: BP 178/80; PULSE 66; O2SAT 95
[2024-10-05] MEDS: 0.45%NACL 1000 IV (16:55)
[2024-10-05] MEDS: DIOVAN 80 MG PO (17:00)
[2024-10-05] MEDS: ASPIR LOW (ENTERIC COATED) 81 MG PO (17:05)
[2024-10-05] MEDS: TRICOR 145 MG PO (17:05)
[2024-10-05] MEDS: CRESTOR 40 MG PO (17:05)
[2024-10-05] MEDS: FLOMAX 0.8 MG PO (17:09)
--- NOTE | 2024-10-05 17:10 | CON.MD ---
Consultation - Medical
-
see dictated note
pt presented in early 2023 with partial urinary retention and luts
residual urine volumes were about 300-350cc- cr was normal and u/s demonstrated no hydro
was on proscar and flomax
due to dvt and afib hx- evaluated for holep- elected at that time to defer
in mar 2024 diagnosed with brain tumor- treated at [facility] with resection- then xrt and chemo
readmitted with seizures to [facility]- during this hospitalization- developed AUR- required milian and was discharged to home- then rehab with cath
about 2 weeks ago- underwent HOLEP at [facility]- by 's report- kept overnight and then milian removed- able to void and flomax and proscar stopped
readmitted with AMS several days ago; cr normal/ pvr's around 200c/ucx + for ecoli
has been treated for UTI- wbc nl/no fevers and f/u ucx negative
MS had improved- but declined again last night and today
cr last checked on 10/02- today up to 2- pvr was 450cc- pt eventually able to void- urine neil/perhaps some burgandy- then rechecked- 178cc
pt is hard to arouse currently
plan
spoke with med team and
current pvr does not require a milian
cr elevation a concern- with pvr under 300cc doubt obstruction- but can not r/o- will obtain ct tonight and recheck pvr in am
restart flomax tonight
check am pvr
will follow closely
[2024-10-05 17:25] LABS: Osmolality Urine 308 mOsm/kg (300-900)
[2024-10-05 17:26] LABS: Urine Protein 103 mg/dl (0-12); Urine Sodium 52 mmol/L (30-90)
--- NOTE | 2024-10-05 18:30 | W.PN.NEURO.1 ---
Today's Communication / Plan
-
spoke with patient's about starting Seroquel 12.5 for sundowning, or starting Aricept 5 mg for memory; she will think about it. I believe dementia (i.e. progressive decline) most like Alz given symptoms of memory, aphasia, behavior is likely,
though it is certainly possible that this is a static encephalopathy.
may need placement as it appears they cannot care for him at home
Neuro Assessment/Plan
Assessment
CSF protein 119, WBC 16, glucose 58, CSF PCR negative
Subacute change in mental status in a patient with a prior diagnosis of glioblastoma and recent prostate procedure with anticoagulation held for multiple days prior to the procedure
MRI without evidence for stroke or other acute findings
no evidence for infectious meningitis/encephalitis
with CSF protein 119, I believe this is a sequela of his prior glioblastoma, and do not believe this represents autoimmune encephalitis given absence of seizures or recent psychosis
Plan
Continue brivaracetam 50 BID and lacosamide 150 BID
Would continue the patient's current apixaban and aspirin dosing
Continue rosuvastatin
spoke with patient's about starting Seroquel 12.5 for sundowning, or starting Aricept 5 mg for memory; she will think about it. I believe dementia (i.e. progressive decline) most like Alz given symptoms of memory, aphasia, behavior is likely,
though it is certainly possible that this is a static encephalopathy.
may need placement as it appears they cannot care for him at home
Subjective/Objective
Subjective Data
Date of Service: October 05, 2024
sitting up in bed, calm, obviously having difficulty expressing himself
family at bedside, concerned about persisting aphasia, behavior
Objective Data
Vital Signs
Temp Pulse Resp BP Pulse Ox
36.9 C 63 20 154/73 95
10/05/24 15:04 10/05/24 17:00 10/05/24 15:04 10/05/24 17:00 10/05/24 15:04
Lab Results
10/05/24 14:11
10/05/24 14:11
PT 14.5 Sec (11.4-14.6) 10/01/24 14:41
INR 1.10 10/01/24 14:41
Sodium 141 mmol/L (135-145) 10/05/24 14:11
Potassium 3.9 mmol/L (3.5-5.1) 10/05/24 14:11
BUN 31 mg/dl (9-20) H 10/05/24 14:11
Glucose 96 mg/dl (70-99) 10/05/24 14:11
Calcium 9.9 mg/dl (8.4-10.2) 10/05/24 14:11
Vitamin B12 308 pg/ml (239-931) 09/27/24 06:24
Patient Allergies
Influenza Virus Vaccines Allergy (Verified 10/03/24 15:42)
'DEALTHY SICK'
iodine Allergy (Verified 09/26/24 10:49)
Anaphylaxis
Sulfa (Sulfonamide Antibiotics) Allergy (Verified 09/26/24 10:49)
Unknown
Physical Exam
-
sitting up in chair
Awake and alert, moderately aphasic, disoriented
face symmetric
moving all extrmities
[2024-10-05] MEDS: PEPCID 40 MG PO (20:03)
[2024-10-05 23:23] VITALS: BP 134/61
[2024-10-06] MEDS: ATIVAN 0.5 MG PO (03:05)
--- NOTE | 2024-10-06 03:09 | PTCARENOTE ---
pt continually attempting to get OOB, increasingly agitated and angry at staff. Multiple attempts to reorient pt without much success. Bed alarm on and active. Plan of care ongoing
[2024-10-06 07:47] VITALS: BP 165/77
[2024-10-06 07:50] LABS: Blood Urea Nitrogen 27 mg/dl (9-20); Calcium 9.3 mg/dl (8.4-10.2); Carbon Dioxide 22 mmol/L (22-30); Chloride 106 mmol/L (98-107); Estimated Creatinine Clearance 54 ml/min; Glucose 96 mg/dl (70-99); Potassium 3.9 mmol/L (3.5-5.1); Sodium 140 mmol/L (135-145); eGFR 58.73
[2024-10-06 07:54] LABS: Hematocrit 33.1 % (39.0-52.0); Hemoglobin 11.5 g/dL (13.0-18.0); Mean Corp Hgb Conc. 34.7 g/dL (33.0-37.0); Mean Corpuscular Hgb 30.8 pg (27.0-31.0); Mean Corpuscular Volume 88.7 fL (80.0-94.0); Mean Platelet Volume 8.4 fL (7.4-10.4); Platelet Count 255 10^3/uL (130-400); Red Blood Cell Count 3.73 10^6/uL (4.70-6.10); Red Cell Dist. Width 12.5 % (11.5-14.5); White Blood Cell Count 5.6 10^3/uL (4.8-10.8)
--- NOTE | 2024-10-06 08:20 | W.PN.URO.CBU ---
Today's Communication / Plan
-
hold eliquis
continue antibx
track cr level
trend hematuria and pvr's
flomax and bethanechol
pt refuses milian for now
Assessment / Plan
-
chronic urinary retention s/p HOLEP
UTI
hematuria due to surgery/eliquis
partial urinary retention
ARF- resolving
i am unsure of cr bump- does not appear to be obstructive based on ct and has improved- will follow
in terms of hematuria- appears to have gotten worse- for now will need to hold eliquis- can contiue asa
in terms of retention- pt back on flomax/no sx's/ residuals generally around his baseline
i did discuss with and FCC surgeon to possibility of cath replacement- they are in agreement; ideally i would place milian for irrigation until hematuria resolved and allow bladder decompression- PT ADAMANTLY REFUSES AND I HAVE DESCRIBED
POTENTIAL RISKS TO HIM AND
however- currently if cr has normalized and pt's pvr's remain under 350cc and hematuria resolves- it is not unreasonable to observe him on flomax and will add bethanechol- nurses will document urine color and pvr's over the next 24hrs
Diagnosis
-
Date of Service: October 06, 2024
-
Patient Urologic Diagnosis:
UTI
s/p HOLEP
hematuria
partial urinary retention
acute renal insuff
Subjective
-
pt awake today- but somewhat biligerant
has been voiding large amounts of urine- bloody by report
pvr's ranging from 170-300cc
cr down to 1.3
ct scan showed no hydro- large right renal stone- distended bladder
Objective
-
Vital Signs
Temp Pulse Resp BP Pulse Ox
98.5 F 63 18 134/61 96
02/12/25 23:23 10/05/24 23:23 10/05/24 23:23 10/05/24 23:23 10/05/24 23:23
Intake and Output
10/05/24 10/06/24 10/07/24
06:59 06:59 06:59
Intake Total 960 / 960
Output Total 1949
Balance -990 / -990
Intake:
Oral fluids 960 / 960
Output:
Urine, Voided 1949
Other:
Number of approximated LARGE 2
amounts of urine
Laboratory Results
10/06/24 07:11
10/06/24 07:11
Review of Systems
-
Unable to obtain full review of systems at this time due to: Other (pt with no specific complaints)
Physical Exam
-
General - no acute distress
Abdomen - soft, non-tender
Genitalia - normal
[2024-10-06] MEDS: FLOMAX 0.8 MG PO (08:26)
[2024-10-06] MEDS: BRIVIACT 50 MG PO ×2 (08:26→20:22)
[2024-10-06] MEDS: ZETIA 10 MG PO (08:26)
[2024-10-06] MEDS: VIMPAT 50 MG PO ×2 (08:27→20:22)
[2024-10-06] MEDS: VIMPAT 100 MG PO ×2 (08:27→20:22)
[2024-10-06] MEDS: VITAMIN B-12 1000 MCG PO (08:28)
[2024-10-06] MEDS: OMNICEF 300 MG PO ×2 (08:28→20:21)
--- NOTE | 2024-10-06 09:40 | W.PN.ID1 ---
Date of Service
Date of Service: October 06, 2024
Today's Communication
c/w cefdinir, to complete a 14-day course in total; 09/26-10/09
Assessment / Plan
#Possible UTI
#Allergy to bactrim - unknown
#TME - improved
# H/o Glioblastoma
#Seizure Disorder
#Dementia
Recommendations:
c/w cefdinir, to complete a 14-day course in total; 09/26-10/09
follow up with PCP
Chief Complaint
-: UTI
Subjective / Review of Systems
afebrile
bp stable
no complaints
Vital Signs / Physical Exam
Vital Signs
Vital Signs
Temp Pulse Resp BP Pulse Ox
97.7 F 67 22 165/77 97
10/06/24 07:47 10/06/24 07:47 10/06/24 07:47 10/06/24 07:47 10/06/24 07:47
Physical Exam
Constitutional: No Acute Distress
Cardiovascular: Regular Rate and S1/S2; Negative Murmur or Rub
Pulmonary: Clear and Symmetric; Negative Wheezes or Rales
Gastrointestinal: Soft, Non Tender, Non Distended and Normal Bowel Sounds
Genito-Urinary: Negative Suprapubic Tenderness
Skin: Warm and Dry; Negative Rash or Jaundice
Objective Data
Lab Data
Lab Results
10/06/24 07:11
10/06/24 07:11
PT 14.5 Sec (11.4-14.6) 10/01/24 14:41
INR 1.10 10/01/24 14:41
Estimated Creat Clear 54 ml/min 10/06/24 07:11
Total Bilirubin 0.8 mg/dl (0.2-1.3) 10/05/24 14:11
AST 17 U/L (17-59) 10/05/24 14:11
ALT 10 U/L (0-50) 10/05/24 14:11
Alkaline Phosphatase 57 U/L (38-126) 10/05/24 14:11
Most recent labs reviewed.
Micro Results:
10/02/24 12:50 CSF Culture - Preliminary
Csf No Growth After 4 Days
Gram Stain - Preliminary
10/02/24 12:50 Acid Fast Bacilli Smear - Preliminary
Csf Acid Fast Bacilli Culture - Preliminary
10/02/24 15:01 Urine Culture - Final
Urine NO GROWTH
10/02/24 12:50 Fungal Culture - Preliminary
Csf Culture in progress.
Positive cultures are reported as soon as detected.
Final report to follow in four to five weeks.
10/02/24 13:12 Meningitis/Encephalitis Panel (PCR) - Final
Csf
09/26/24 14:09 Urine Culture - Final
Urine Escherichia coli
09/30/24 MRI brain: Status post parieto-occipital craniotomy, centered in the right posterior paramedian parietal region. Focus of encephalomalacia with hemosiderin rim subjacent to the craniotomy. No MR evidence for residual or recurrent neoplasm.
Asymmetric increased FLAIR signal involving the white matter of the right parieto-occipital region, possibly due to radiation therapy. Asymmetric increased FLAIR signal involving the right posterior thalamus as well as the right medial and lateral
cortex of the insula in the region of right external capsule. Etiology for this finding is uncertain. This could be due to radiation therapy changes that this was included in the radiation therapy field. Differential consideration of encephalitis,
without enhancement. Patient with reported history of seizures, and brain parenchymal signal intensity changes can be seen in association with seizures, and this would also be a differential consideration. Diffuse atrophy.
[2024-10-06] MEDS: 0.45%NACL 1000 IV ×2 (10:27→21:31)
--- NOTE | 2024-10-06 12:59 | W.PN.HOSP.TC ---
Today's Communication/Plan
-
Assessment / Plan
Assessment / Plan
NAD
Scleral Anicteric
MMM
No JVD
CTABL
RRR, S1/S2
Soft, NT, ND, BS+
Warm, Dry
AAO x2 (person/year)
Calm
Toxic metabolic encephalopathy likely secondary to UTI
Started on IV antibiotics ID has transitioned to p.o. cefdinir to complete full 14-day course with a completion date of October 09
There was concern for meningitis therefore LP was completed highly site count however PCR negative therefore acyclovir discontinued by ID
Was evaluated by neurology
-Concern for seizure however EEG completed. Demonstrated some abnormalities suggestive of right temporal generalized cortical abnormality and generalized slowing suggestive bihemispheric cortical dysfunction
-MRI showing some increased FLAIR signal at the right parieto-occipital region and right posterior thalamus believed to be related to radiation treatments for known history of glioblastoma
10/05-- Due to the acute change in mental status from this morning to this afternoon. I placed a stat CT CBC BMP LFTs a urine analysis
10/05----I called Dr. Terrell shields who is his primary neurologist at [place], waiting for a phone call back and after receiving an okay/consent from his Eryn I faxed over MRI CT brain and EEG results to [phone]
still have not heard back from primary neurologist
Anticoagulation - On ac for afib and prior dvt/pe
- cleared to restart, continue eliquis 5 bid (confirmed with Anushka BRASHER okay to have LP on Eliquis)
Cholelithiasis
Asymptomatic, outpatient general surgery follow-up
Nephrolithiasis
Urology following
7 mm renal mass. Outpatient follow-up
[facility]
Started on gentle IV hydration. Yesterday poor p.o. intake along with urinary retention which has not resolved
Avoid nephrotoxins hypotension
pAFIB
- currently sinus
- eliquis
- no rate control, monitor on telemetry
s/p ablation 04/2021
HTN
- continue valsartan
Sz disorder
was on Vimpat and Keppra. Keppra has been stopped and is now on Briviact 50 mg bid, and Vimpat 150 mg bid. Dx with glioblastoma Apr 15, 2024 and started on Keppra. Underwent resection Apr 27, 2024. Dc on Apr 30, doing well initially, started 6
wks of Chemo and XRT at [facility]. 2 weeks later, had a Sz on Jul 23, brought to [facility] and transported to [facility]. Was there for 15 days complicated hospitalization, multiple different agents and finally Sz controlled and then dc to [facility] rehab. On Vimpat
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 Briviact was added 1 wk CATCHER HELPER.
DVT PPX - on eliquis
PT OT recommending ARU
Consult physiatry
Anticipated Discharge: 24 - 48 hours
Subjective/Interval History
-
Date of Service: October 06, 2024
Seen and examined. No new complaints. No acute overnight events.
Mental status has returned to baseline. Able to tell me he is at [facility]. Able to tell me the year. Still having trouble with tell me the month the but this has been ongoing.
I did call his primary neurologist yesterday however still waiting on the phone call back. I did fax over MRI CT brain EEG reports to his primary neurologist
Objective Data
-
Labs:
Laboratory Results
10/06/24
07:11
WBC 5.6
Hgb 11.5 L
Hct 33.1 L
Plt Count 255
Sodium 140
Potassium 3.9
Chloride 106
Carbon Dioxide 22
BUN 27 H
Creatinine 1.3
Glucose 96
Calcium 9.3
Vital Signs:
Vital Signs
Temp Pulse Resp BP Pulse Ox
97.7 F 67 22 165/77 97
10/06/24 07:47 10/06/24 07:47 10/06/24 07:47 10/06/24 07:47 10/06/24 07:47
I&O
10/05/24 10/06/24 10/07/24
06:59 06:59 06:59
Intake Total 960 / 960
Output Total 1950 / 1949
Balance -990 / -990
--- NOTE | 2024-10-06 14:35 | CM ---
Addendum entered by Trupti Garduno 10/06/24 14:48:
Spoke w/ [facility], pt has been accepted for admission whenever he is stable for d/c. [facility] shared as long as pt provides his own chemo meds and spouse understands he cannot go to any OP appts while admitted, they are willing to accept.
[facility] shared pt can admit over the weekend if he is stable then, as she is working and will follow up.
Pt will need ambulance transport arranged at d/c
Updated hospitalist and spouse
Plan: [facility]
Original Note:
Spoke w/ [facility], pt's referral is currently being reviewed. CM faxed requested clinicals to [phone].
CM confirmed w/ pt's spouse that pt is currently receiving chemo treatment via pills and can provide at rehab. CM confirmed this w/ [facility] and sent additional updated notes via [facility] for further review.
Plan: [facility] if accepted at d/c
[2024-10-06 15:21] VITALS: BP 155/82
[2024-10-06] MEDS: TRICOR 145 MG PO (18:24)
[2024-10-06] MEDS: CRESTOR 40 MG PO (18:24)
[2024-10-06] MEDS: ASPIR LOW (ENTERIC COATED) 81 MG PO (18:24)
[2024-10-06] MEDS: DIOVAN 80 MG PO (18:25)
[2024-10-06] MEDS: URECHOLINE 25 MG PO (20:21)
[2024-10-06] MEDS: PEPCID 40 MG PO (20:22)
[2024-10-06] MEDS: TYLENOL 650 MG PO (20:24)
[2024-10-06 23:27] VITALS: BP 149/71
[2024-10-07 07:47] VITALS: BP 171/88
[2024-10-07 07:51] LABS: Hematocrit 31.3 % (39.0-52.0); Hemoglobin 11.1 g/dL (13.0-18.0); Mean Corp Hgb Conc. 35.5 g/dL (33.0-37.0); Mean Corpuscular Hgb 30.8 pg (27.0-31.0); Mean Corpuscular Volume 86.9 fL (80.0-94.0); Mean Platelet Volume 8.2 fL (7.4-10.4); Platelet Count 227 10^3/uL (130-400); Red Cell Dist. Width 12.4 % (11.5-14.5); White Blood Cell Count 3.7 10^3/uL (4.8-10.8)
[2024-10-07 08:10] LABS: Blood Urea Nitrogen 18 mg/dl (9-20); Calcium 9.2 mg/dl (8.4-10.2); Carbon Dioxide 24 mmol/L (22-30); Chloride 108 mmol/L (98-107); Estimated Creatinine Clearance 78 ml/min; Glucose 101 mg/dl (70-99); Potassium 3.9 mmol/L (3.5-5.1); Sodium 140 mmol/L (135-145); eGFR > 60.00
--- NOTE | 2024-10-07 08:15 | W.PN.URO.CBU ---
Addendum entered and electronically signed by Julio Baires Jr., MD 10/07/24 09:09:
called and updated by phone of urologic plan
Original Note:
Today's Communication / Plan
-
plan as above
Assessment / Plan
-
chronic urinary retention s/p HOLEP
UTI
hematuria due to surgery/eliquis
partial urinary retention
ARF- resolving
i am unsure of cr bump- does not appear to be obstructive based on ct- NOW BACK TO BASELINE
in terms of hematuria- WITH HOLD OF ELIQUIS- RESOLVING- WOULD CONTINUE ASA- BUT HOLD ELIQUIS UNTIL THURSDAY- HE CAN THEN RESUME IF URINE CLEAR
in terms of retention- pt back on flomaxA and added bethanechol- true pvr's are okay
from urologic standpoint- pt stable
cleared for discharge
would rec flomax 0.4mg and bethanechol 25mg bid
finish antibx course per ID
continue asa- hold eliquis until thursday- then if urine clear okay to resume
pt should schedule f/u with dr san at [facility] for post op check and discussion of large right renal stone
Diagnosis
-
Date of Service: October 07, 2024
-
Patient Urologic Diagnosis:
UTI
s/p HOLEP
hematuria
partial urinary retention
acute renal insuff
Subjective
-
pt more awake and alert today
says he is having no difficulty urinating
urine clearing
bladder scans have been 300cc or below and his last true PVR was under 50cc
cr back to baseline
Objective
-
Vital Signs
Temp Pulse Resp BP Pulse Ox
97.6 F 56 18 171/88 97
10/07/24 07:47 10/07/24 07:47 10/07/24 07:47 10/07/24 07:47 10/07/24 07:47
Intake and Output
10/06/24 10/07/24 10/08/24
06:59 06:59 06:59
Intake Total 960 / 960 2488 / 2488
Output Total 1949 / 1949 1800 / 1800
Balance -990 / -990 688 / 688
Intake:
Oral fluids 960 / 960 480 / 480
IV fluids (Total) 2007
Output:
Urine, Voided 1949 1800 / 1800
Other:
Number of approximated LARGE 2
amounts of urine
Laboratory Results
10/07/24 07:35
10/07/24 07:35
Review of Systems
-
Constitutional: Fatigue
Respiratory: No Symptoms
Cardiac: No Symptoms
Abdomen/GI: No Symptoms
: No Symptoms
Physical Exam
-
General - no acute distress
Abdomen - soft, non-tender
Genitalia - normal
[2024-10-07] MEDS: ZETIA 10 MG PO (08:59)
[2024-10-07] MEDS: VIMPAT 100 MG PO (08:59)
[2024-10-07] MEDS: FLOMAX 0.8 MG PO (08:59)
[2024-10-07] MEDS: OMNICEF 300 MG PO (08:59)
[2024-10-07] MEDS: URECHOLINE 25 MG PO (08:59)
[2024-10-07] MEDS: BRIVIACT 50 MG PO ×2 (08:59→11:50)
[2024-10-07] MEDS: VITAMIN B-12 1000 MCG PO (08:59)
[2024-10-07] MEDS: VIMPAT 50 MG PO (09:00)
--- NOTE | 2024-10-07 11:36 | W.PN.ID1 ---
Date of Service
Date of Service: October 07, 2024
Today's Communication
c/w cefdinir, to complete a 14-day course in total; 09/26-10/09
follow up with PCP
ID service will no longer actively follow this patient please recall for further questions
Assessment / Plan
#Prostaitis
#Allergy to bactrim - unknown
#TME - improved
# H/o Glioblastoma
#Seizure Disorder
#Dementia
Recommendations:
c/w cefdinir, to complete a 14-day course in total; 09/26-10/09
follow up with PCP
ID service will no longer actively follow this patient please recall for further questions
Chief Complaint
-: UTI (prostatitis)
Subjective / Review of Systems
afebrile
bp stable
agitated overnight
L renal mass seen on CT, large nonobstructing stone
Vital Signs / Physical Exam
Vital Signs
Vital Signs
Temp Pulse Resp BP Pulse Ox
97.6 F 56 18 171/88 97
10/07/24 07:47 10/07/24 07:47 10/07/24 07:47 10/07/24 07:47 10/07/24 08:40
Physical Exam
Constitutional: No Acute Distress
Cardiovascular: Regular Rate and S1/S2; Negative Murmur or Rub
Pulmonary: Clear and Symmetric; Negative Wheezes or Rales
Gastrointestinal: Soft, Non Tender, Non Distended and Normal Bowel Sounds
Skin: Warm and Dry; Negative Rash or Jaundice
Objective Data
Lab Data
Lab Results
10/07/24 07:35
10/07/24 07:35
PT 14.5 Sec (11.4-14.6) 10/01/24 14:41
INR 1.10 10/01/24 14:41
Estimated Creat Clear 78 ml/min 10/07/24 07:35
Total Bilirubin 0.8 mg/dl (0.2-1.3) 10/05/24 14:11
AST 17 U/L (17-59) 10/05/24 14:11
ALT 10 U/L (0-50) 10/05/24 14:11
Alkaline Phosphatase 57 U/L (38-126) 10/05/24 14:11
Most recent labs reviewed.
Micro Results:
10/02/24 12:50 CSF Culture - Preliminary
Csf No Growth After 4 Days
Gram Stain - Preliminary
10/02/24 12:50 Acid Fast Bacilli Smear - Preliminary
Csf Acid Fast Bacilli Culture - Preliminary
10/02/24 15:01 Urine Culture - Final
Urine NO GROWTH
10/02/24 12:50 Fungal Culture - Preliminary
Csf Culture in progress.
Positive cultures are reported as soon as detected.
Final report to follow in four to five weeks.
10/02/24 13:12 Meningitis/Encephalitis Panel (PCR) - Final
Csf
09/26/24 14:09 Urine Culture - Final
Urine Escherichia coli
09/30/24 MRI brain: Status post parieto-occipital craniotomy, centered in the right posterior paramedian parietal region. Focus of encephalomalacia with hemosiderin rim subjacent to the craniotomy. No MR evidence for residual or recurrent neoplasm.
Asymmetric increased FLAIR signal involving the white matter of the right parieto-occipital region, possibly due to radiation therapy. Asymmetric increased FLAIR signal involving the right posterior thalamus as well as the right medial and lateral
cortex of the insula in the region of right external capsule. Etiology for this finding is uncertain. This could be due to radiation therapy changes that this was included in the radiation therapy field. Differential consideration of encephalitis,
without enhancement. Patient with reported history of seizures, and brain parenchymal signal intensity changes can be seen in association with seizures, and this would also be a differential consideration. Diffuse atrophy.
--- NOTE | 2024-10-07 12:17 | W.PN.HOSP.TC ---
Today's Communication/Plan
-
More than 30 minutes spent in discharge including
Final examination of the patient
Summarizing hospital stay
Instructions for continuing care to all relevant caregivers
Preparation of discharge records, prescriptions, and referral forms
Total time spent (in minutes): 33mins
Assessment / Plan
Assessment / Plan
NAD
Scleral Anicteric
MMM
No JVD
CTABL
RRR, S1/S2
Soft, NT, ND, BS+
Warm, Dry
AAO x2 (person/year)
Calm
Toxic metabolic encephalopathy likely secondary to UTI
Started on IV antibiotics ID has transitioned to p.o. cefdinir to complete full 14-day course with a completion date of October 09
There was concern for meningitis therefore LP was completed highly site count however PCR negative therefore acyclovir discontinued by ID
Was evaluated by neurology
-Concern for seizure however EEG completed. Demonstrated some abnormalities suggestive of right temporal generalized cortical abnormality and generalized slowing suggestive bihemispheric cortical dysfunction
-MRI showing some increased FLAIR signal at the right parieto-occipital region and right posterior thalamus believed to be related to radiation treatments for known history of glioblastoma
10/05-- Due to the acute change in mental status from this morning to this afternoon. I placed a stat CT CBC BMP LFTs a urine analysis
10/05----I called Dr. Tejada office who is his primary neurologist at [facility], waiting for a phone call back and after receiving an okay/consent from his Eryn I faxed over MRI CT brain and EEG results to [phone]
still have not heard back from primary neurologist
10/07 -I spoke with primary neurologist Dr. Tejada. He informs me he recently had was admitted to [facility] for status epilepticus at that time was started on Vimpat and Briviact
full update provided. Tells me that he did receive the MRI however did not get the EEG. Therefore read him the report. I informed him about his waxing waning mental status. With known history of status epilepticus in July. He
agrees that AEDs should be increased. He has recommended to increase BRIVIACT to 100 mg twice a day. Recommend still discharge to [facility] rehab facility. If again develops neurological symptoms/confusion then should go to [facility] for continuous EEG monitoring as [facility] does not have this capability.
--- I did inform Eryn of his recommendations.
Anticoagulation - On ac for afib and prior dvt/pe
-Urology would like to hold Eliquis until urine clears up
Continue aspirin
Cholelithiasis
Asymptomatic, outpatient general surgery follow-up
Nephrolithiasis
Urology following
7 mm renal mass. Outpatient follow-up
Retention�urinary/acute
-Evaluated by urology
-Started bethanechol Flomax
Hematuria
-Hold Eliquis until urine clears up
-Continue aspirin though
KOLBY resolved
IV fluids discontinued
Avoid nephrotoxins hypotension
pAFIB
- currently sinus
- eliquis
- no rate control, monitor on telemetry
s/p ablation 04/2021
HTN
- continue valsartan
Sz disorder
was on Vimpat and Keppra. Keppra has been stopped and is now on Briviact 50 mg bid, and Vimpat 150 mg bid. Dx with glioblastoma Apr 15, 2024 and started on Keppra. Underwent resection Apr 27, 2024. Dc on Apr 30, doing well initially, started 6
wks of Chemo and XRT at [facility]. 2 weeks later, had a Sz on Jul 23, brought to [facility] and transported to [facility]. Was there for 15 days complicated hospitalization, multiple different agents and finally Sz controlled and then dc to [facility] rehab. On Vimpat
at that time, was working until 2 wks [employer]ORQUE TE[employer] when developed left sided tilt. Briviact was added 1 wk [employer]QUE [employer].
DVT PPX - on eliquis
PT OT recommending ARU
Consult physiatry
Discharged to [facility]
Anticipated Discharge: Today
Subjective/Interval History
-
Date of Service: October 07, 2024
Seen and examined. Sitting in bedside chair eating breakfast. Knows that he is at [facility]. Watching the [employer] parade. Knows that they were in the [employer] on Thursday.
Objective Data
-
Labs:
Laboratory Results
10/07/24
07:35
WBC 3.7 L
Hgb 11.1 L
Hct 31.3 L
Plt Count 227
Sodium 140
Potassium 3.9
Chloride 108 H
Carbon Dioxide 24
BUN 18
Creatinine 0.9
Glucose 101 H
Calcium 9.2
Vital Signs:
Vital Signs
Temp Pulse Resp BP Pulse Ox
97.6 F 56 18 171/88 97
10/07/24 07:47 10/07/24 07:47 10/07/24 07:47 10/07/24 07:47 10/07/24 08:40
I&O
10/06/24 10/07/24 10/08/24
06:59 06:59 06:59
Intake Total 960 / 960 2488 / 2488
Output Total 1950 / 1950 1800 / 1800 400 / 400
Balance -990 / -990 688 / 688 -400 / -400
--- NOTE | 2024-10-07 12:55 | W.DCSUMMARY ---
Discharge Summary
Discharge Data
Date of Admission: 09/26/24
Date of Discharge: 10/07/24
-
Pending Results: No
Hospital Course
68-year-old male with past medical history of hypertension, hyperlipidemia, DVT/PE, proximal atrial fibrillation, history of glioblastoma status post tumor resection in March, focal seizures
Presented for worsening cognitive function and agitation at home. Recent history of TURP at [facility]. Concern for urinary tract infection, started on IV antibiotics, urine culture demonstrating Rocephin sensitive E. coli in urine. Evaluated by ID
recommended to transition to Omnicef 300 mg twice a day until October 09.
Hospital course further complicated by waxing waning mental status. Had EEG MRI neurology eval. No additional recommendations were provided. EEG without epileptiform activity. MRI finding consistent with previous glioblastoma resection. LP
completed initially started on antivirals as there was high lymphocyte count and CSF fluid however meningitis panel was negative therefore infectious diseases discontinued antivirals. Had additional CT brain completed without any acute evidence.
Was able to discuss case with primary neurologist at [facility] recommended to increase the brivact 100 mg twice a day and to continue the Vimpat 150 mg twice a day. Outpatient neurology follow-up.
In the future, if he has neurological symptoms/confusion/altered mental status then may require transfer to [facility] as he has a history of glioblastoma s/p resection and recent status epilepticus in July 2024.
Additionally should be noted was evaluated by urology for hematuria and urinary retention however was able to urinate on his own. Eliquis held, started on bethanechol Flomax. Recommend to resume Eliquis once urine has cleared. Will need
outpatient urology follow-up. Continue aspirin for now.
Evaluated by physical therapy recommended discharge to acute rehab
CT Brain
IMPRESSION:
No acute intracranial abnormality noted.
Stable encephalomalacia in the right parietal lobe probably sequela of previous surgery .
MRI Brain
IMPRESSION: Status post parieto-occipital craniotomy, centered in the right posterior paramedian parietal region. Focus of encephalomalacia with hemosiderin rim subjacent to the craniotomy. No MR evidence for residual or recurrent neoplasm.
Asymmetric increased FLAIR signal involving the white matter of the right parieto-occipital region, possibly due to radiation therapy.
Asymmetric increased FLAIR signal involving the right posterior thalamus as well as the right medial and lateral cortex of the insula in the region of right external capsule. Etiology for this finding is uncertain. This could be due to radiation
therapy changes that this was included in the radiation therapy field. Differential consideration of encephalitis, without enhancement. Patient with reported history of seizures, and brain parenchymal signal intensity changes can be seen in
association with seizures, and this would also be a differential consideration.
Diffuse atrophy.
Head CT
IMPRESSION:
There are no acute intracranial abnormalities
There is mild diffuse cortical atrophy and a 3 cm focal area of volume loss and evidence of lesion in the posterior medial aspect of the right parietal lobe subjacent to right posterior parietal craniotomy
CTAP
IMPRESSION:
Cholelithiasis. No CT evidence of acute cholecystitis.
A group of nonobstructing calculi in the lower pole the right kidney, measuring up to 1.3 cm. No left renal calculus. No ureteral calculus, hydronephrosis, or obstructive uropathy. No bladder calculus. Bladder wall thickening, consistent with
cystitis.
There is central low-attenuation in the prostate gland which appears contiguous with fluid in the urinary bladder, suggesting previous TURP.
Nonspecific 7 mm left renal mass, too small to fully characterize.
Minor diverticulosis. No evidence of acute diverticulitis. No bowel obstruction.
Discharge Plan
-
Patient Disposition: Acute Rehab Facility
Discharge Diagnosis/Procedures: Complicated UTI
Urinary retention
Hematuria
Diet: As tolerated
Activity: As tolerated
Activity Restrictions/Additional Instructions:
Presented for worsening cognitive function and agitation at home. Recent history of TURP at [facility]. Concern for urinary tract infection, started on IV antibiotics, urine culture demonstrating Rocephin sensitive E. coli in urine. Evaluated by ID
recommended to transition to Omnicef 300 mg twice a day until October 09.
Hospital course further complicated by waxing waning mental status. Had EEG MRI neurology eval. No additional recommendations were provided. EEG without epileptiform activity. MRI finding consistent with previous glioblastoma resection. LP
completed initially started on antivirals as there was high lymphocyte count and CSF fluid however meningitis panel was negative therefore infectious diseases discontinued antivirals. Had additional CT brain completed without any acute evidence.
Was able to discuss case with primary neurologist at [facility] recommended to increase the brivact 100 mg twice a day and to continue the Vimpat 150 mg twice a day. Outpatient neurology follow-up.
In the future, if he has neurological symptoms/confusion/altered mental status then may require transfer to [facility] as he has a history of glioblastoma s/p resection and recent status epilepticus in July 2024.
Additionally should be noted was evaluated by urology for hematuria and urinary retention however was able to urinate on his own. Eliquis held, started on bethanechol Flomax. Recommend to resume Eliquis once urine has cleared. Will need
outpatient urology follow-up. Continue aspirin for now.
Evaluated by physical therapy recommended discharge to acute rehab
CT Brain
IMPRESSION:
No acute intracranial abnormality noted.
Stable encephalomalacia in the right parietal lobe probably sequela of previous surgery .
MRI Brain
IMPRESSION: Status post parieto-occipital craniotomy, centered in the right posterior paramedian parietal region. Focus of encephalomalacia with hemosiderin rim subjacent to the craniotomy. No MR evidence for residual or recurrent neoplasm.
Asymmetric increased FLAIR signal involving the white matter of the right parieto-occipital region, possibly due to radiation therapy.
Asymmetric increased FLAIR signal involving the right posterior thalamus as well as the right medial and lateral cortex of the insula in the region of right external capsule. Etiology for this finding is uncertain. This could be due to radiation
therapy changes that this was included in the radiation therapy field. Differential consideration of encephalitis, without enhancement. Patient with reported history of seizures, and brain parenchymal signal intensity changes can be seen in
association with seizures, and this would also be a differential consideration.
Diffuse atrophy.
Head CT
IMPRESSION:
There are no acute intracranial abnormalities
There is mild diffuse cortical atrophy and a 3 cm focal area of volume loss and evidence of lesion in the posterior medial aspect of the right parietal lobe subjacent to right posterior parietal craniotomy
CTAP
IMPRESSION:
Cholelithiasis. No CT evidence of acute cholecystitis.
A group of nonobstructing calculi in the lower pole the right kidney, measuring up to 1.3 cm. No left renal calculus. No ureteral calculus, hydronephrosis, or obstructive uropathy. No bladder calculus. Bladder wall thickening, consistent with
cystitis.
There is central low-attenuation in the prostate gland which appears contiguous with fluid in the urinary bladder, suggesting previous TURP.
Nonspecific 7 mm left renal mass, too small to fully characterize.
Minor diverticulosis. No evidence of acute diverticulitis. No bowel obstruction.
Referrals:
Terrell Weaver MD [Non-Admitting Privileges] - in one to two weeks
Kamlesh Jimenez DO [Family Provider] -
Maksim aGrcia DO [Non-Admitting Privileges] - in one to two weeks
Additional Discharge Medication Instructions: hold eliquis until urine clears up
Prescriptions:
New
Briviact 50 mg Tablet
100 mg PO BID Qty: 30 0RF
lacosamide 100 mg Tablet
150 mg PO BID Qty: 60 0RF
aspirin 81 mg Tablet,Delayed Release (Dr/Ec)
81 mg PO QPM Qty: 30 0RF
valsartan 80 mg Tablet
80 mg PO QPM Qty: 30 0RF
bisacodyl 10 mg Suppository
10 mg W[place] [id number] PRN (Reason: constipation) Qty: 30 0RF
rosuvastatin 40 mg Tablet
40 mg PO QPM Qty: 30 0RF
cyanocobalamin (vitamin B-12) [Vitamin B-12] 1,000 mcg Tablet
1,000 mcg PO DAILY Qty: 30 0RF
cefdinir 300 mg Capsule
300 mg PO Q12 Qty: 4 0RF
tamsulosin 0.4 mg Capsule
0.8 mg PO DAILY Qty: 30 0RF
bethanechol chloride 25 mg Tablet
25 mg PO BID Qty: 30 0RF
Continued
fenofibrate 160 MG tablet
160 mg PO QPM
ascorbic acid (vitamin C) [Vitamin C] 500 MG tablet
1,000 mg PO QPM
famotidine 40 mg Tablet
40 mg PO BID
finasteride 5 mg Tablet
5 mg PO DAILY
ezetimibe 10 mg Tablet
10 mg PO DAILY
coenzyme Q10 [CoQ-10] 100 mg Capsule
300 mg PO DAILY
Held
Eliquis 5 MG tablet
5 mg PO BID Qty: 180 3RF
Hold Instructions: Resume on 10/10/24.
until urine clears up
Discontinued
aspirin 81 MG tablet,delayed release (DR/EC)
81 mg PO QPM
valsartan 80 MG tablet
80 mg PO QPM
tamsulosin 0.4 mg Capsule
0.4 mg PO HS
levetiracetam 750 mg Tablet
750 mg PO BID
Discharge Orders:
Discharge Patient (As Directed); Ordered 10/07/24
Ordered By: Alessio Darnell
Discharge Date and Time
Print Language: AZERI
--- NOTE | 2024-10-07 13:13 | CM ---
Pt stable for d/c today to [facility]- [facility].
Spoke w/ Consuelo/ [facility] admissions to confirm d/c today. Per Consuelo, pt can admit today, requesting most recent BP reading, nurse made aware.
CM confirmed d/c to rehab w/ spouse bedside. IMM reviewed, given copy, copy on chart
Ambulance transport to be arranged, forms on chart
[facility]
Report: [phone]

[facility]. Ambulance transport
[2024-10-07 13:28] VITALS: BP 124/62
[2024-10-07 14:58] VITALS: BP 174/84
== END 2024-10-07 18:52 | DRG 698 ==
LOC: 4 EAST ACU 20:15
PROVIDERS: Emergency Medicine; Internal Medicine; Radiology Vascular & Interventional Radiology; ADMITTING PHYSICIAN Internal Medicine; ATTENDING PHYSICIAN Hospitalist; CONSULT PHYSICIAN Psychiatry & Neurology Neurology; CONSULT PHYSICIAN Specialist; CONSULT PHYSICIAN Student in an Organized Health Care Education/Training Program; EMERGENCY PHYSICIAN Emergency Medicine; FAMILY PHYSICIAN Family Medicine
PROC: B01B1ZZ Fluoroscopy of Spinal Cord using Low Osmolar Contrast (ICD-10-PCS; 2024-10-02)
PROC: 009U3ZX Drainage of Spinal Canal, Percutaneous Approach, Diagnostic (ICD-10-PCS; 2024-10-02)
DX: N99.89 Other postprocedural complications and disorders of genitourinary system (principal); G92.8 Other toxic encephalopathy; R47.01 Aphasia; Z16.29 Resistance to other single specified antibiotic; G40.919 Epilepsy, unspecified, intractable, without status epilepticus; F05 Delirium due to known physiological condition; F02.811 Dementia in other diseases classified elsewhere, unspecified severity, with agitation; N17.9 Acute kidney failure, unspecified; D68.32 Hemorrhagic disorder due to extrinsic circulating anticoagulants; N30.91 Cystitis, unspecified with hematuria; R33.8 Other retention of urine; I48.0 Paroxysmal atrial fibrillation; G30.9 Alzheimer's disease, unspecified; E78.00 Pure hypercholesterolemia, unspecified; G93.89 Other specified disorders of brain; I10 Essential (primary) hypertension; N40.1 Benign prostatic hyperplasia with lower urinary tract symptoms; R45.1 Restlessness and agitation; K80.20 Calculus of gallbladder without cholecystitis without obstruction; N20.0 Calculus of kidney; N28.89 Other specified disorders of kidney and ureter; G31.9 Degenerative disease of nervous system, unspecified; Y83.8 Other surgical procedures as the cause of abnormal reaction of the patient, or of later complication, without mention of misadventure at the time of the procedure; B96.20 Unspecified Escherichia coli [E. coli] as the cause of diseases classified elsewhere; W06.XXXA Fall from bed, initial encounter; Y93.89 Activity, other specified; Y92.003 Bedroom of unspecified non-institutional (private) residence as the place of occurrence of the external cause; Z85.841 Personal history of malignant neoplasm of brain; Z90.79 Acquired absence of other genital organ(s); Z79.82 Long term (current) use of aspirin; Z86.718 Personal history of other venous thrombosis and embolism; Z86.711 Personal history of pulmonary embolism; Z87.891 Personal history of nicotine dependence; Z88.2 Allergy status to sulfonamides; Z88.7 Allergy status to serum and vaccine; Z91.041 Radiographic dye allergy status; Z79.01 Long term (current) use of anticoagulants; Z88.1 Allergy status to other antibiotic agents
CPT/HCPCS: 36600; 51798; 62270; 70450; 70553; 74176; 80048; 80053; 80076; 81003; 81015; 82550; 82570; 82607; 82805; 82945; 83735; 83935; 84156; 84157; 84300; 84443; 85025; 85027; 85610; 86592; 87015; 87070; 87077; 87086; 87102; 87116; 87186; 87205; 87327; 87483; 88108; 89051; 92523; 92610; 95813; 96361; 96374; 97116; 97163; 97167; 97535; 99285; A9575

== ENCOUNTER 2025-02-17 13:45 | Outpatient (RCR) | payer MEDICARE, SELFPAY | END 2025-02-17 23:59 | disposition home or self-care (01) | LOC: ROT 13:45 | PROVIDERS: ATTENDING PHYSICIAN Family Medicine | DX: C71.9 Malignant neoplasm of brain, unspecified (principal); Z73.6 Limitation of activities due to disability; R41.840 Attention and concentration deficit; R41.89 Other symptoms and signs involving cognitive functions and awareness; R41.841 Cognitive communication deficit; R26.89 Other abnormalities of gait and mobility; G40.909 Epilepsy, unspecified, not intractable, without status epilepticus; M62.81 Muscle weakness (generalized); Z85.46 Personal history of malignant neoplasm of prostate | CPT/HCPCS: 96125; 97110; 97112; 97116; 97129; 97130; 97163; 97167; 97530; 97535 ==

== ENCOUNTER → 2025-02-23 09:45 | Outpatient (REF) | payer MEDICARE, SELFPAY | LOC: MRI 3T 09:45 | PROVIDERS: ATTENDING PHYSICIAN Psychiatry & Neurology Neurology; FAMILY PHYSICIAN Family Medicine | DX: C71.9 Malignant neoplasm of brain, unspecified (principal) | CPT/HCPCS: 70553; A9575 ==

== ENCOUNTER 2025-03-23 10:20 | Outpatient (RCR) | payer MEDICARE, SELFPAY | END 2025-03-23 23:59 | disposition home or self-care (01) | LOC: ROT 10:20 | PROVIDERS: ATTENDING PHYSICIAN Family Medicine | DX: D49.6 Neoplasm of unspecified behavior of brain (principal); C71.9 Malignant neoplasm of brain, unspecified (principal); Z73.6 Limitation of activities due to disability; R41.840 Attention and concentration deficit; R41.89 Other symptoms and signs involving cognitive functions and awareness; R41.841 Cognitive communication deficit; R26.89 Other abnormalities of gait and mobility; G40.909 Epilepsy, unspecified, not intractable, without status epilepticus; M62.81 Muscle weakness (generalized); Z85.46 Personal history of malignant neoplasm of prostate | CPT/HCPCS: 97110; 97112; 97116; 97129; 97130; 97530; 97535 ==

== ENCOUNTER 2025-03-29 09:12 | Outpatient (RCR) | payer MEDICARE, SELFPAY | END 2025-03-29 23:59 | disposition home or self-care (01) | LOC: ROT 09:12 | PROVIDERS: ATTENDING PHYSICIAN Family Medicine | DX: D49.6 Neoplasm of unspecified behavior of brain (principal); Z73.6 Limitation of activities due to disability; R41.840 Attention and concentration deficit; R41.89 Other symptoms and signs involving cognitive functions and awareness; R41.841 Cognitive communication deficit; R26.89 Other abnormalities of gait and mobility; G40.909 Epilepsy, unspecified, not intractable, without status epilepticus; M62.81 Muscle weakness (generalized); C71.9 Malignant neoplasm of brain, unspecified; Z85.46 Personal history of malignant neoplasm of prostate | CPT/HCPCS: 97110; 97112; 97129; 97130; 97530 ==